=== PATIENT | female | born 1930 | race Caucasian/White ===

== ENCOUNTER 2016-07-05 05:49 | Day surgery (SDC) | payer MEDICARE ==
[2016-07-05] MEDS ORDERED: Xopenex 1.25 MG/0.5 ML UD NEBULE IH ONE (06:30)
[2016-07-05] MEDS ORDERED: Sodium Chloride 3 ML UD NEBULES IH SCH (06:30)
[2016-07-05] MEDS ORDERED: Lactated Ringers 1,000 ML IV SCH (06:30)
[2016-07-05 06:50] VITALS: O2SAT 90
[2016-07-05] MEDS ORDERED: DIPRIVAN 200 MG/20 ML IV ONE (08:00)
--- NOTE | 2016-07-05 08:38 | OP ---
SURGERY DATE/TIME: 07/05/2016 0759 PREOPERATIVE DIAGNOSIS: Dysphagia. POSTOPERATIVE DIAGNOSIS: Gastric polyps PROCEDURE: EGD. SURGEON: Ranulfo Pemberton M.D. ANESTHESIA: MAC by Javon Chavarria CRNA.0 ESTIMATED BLOOD LOSS: Minimal. SPECIMENS: Two cold forceps biopsies of gastric polyp. DESCRIPTION OF PROCEDURE: After informed written consent was obtained, the patient was taken to the endoscopy suite. She underwent monitored anesthesia and a bite block was inserted. The endoscope was inserted in posterior oropharynx and under direct visualization the esophagus was traversed. There was significant post-nasal drainage in the upper esophagus. There were no obvious mucosal abnormalities or defects. Upon entering the stomach there was normal rugated gastric mucosa. There was scattered gastric polyps which appeared benign in nature. Pylorus was traversed and the first and second portion of the duodenum were within normal limits. Upon withdrawal two cash posting representative gastric polyps were removed in their entirety with cold forceps and sent for pathology. There was minimal bleeding following removal. Upon withdrawal again the gastroesophageal junction and esophageal mucosa were inspected with no obvious stricture or defects appreciable. The scope was removed and the patient was transferred to the recovery room in excellent condition.
[2016-07-05 09:10] VITALS: BP 137/72; PULSE 69
== END 2016-07-05 09:19 | disposition home or self-care (01) ==
LOC: SDC 05:49
PROVIDERS: ATTEND Family Medicine
PROC: 0DB68ZX Excision of Stomach, Via Natural or Artificial Opening Endoscopic, Diagnostic (ICD-10-PCS; principal; 2016-07-05)
DX: K31.7 Polyp of stomach and duodenum (principal); R13.10 Dysphagia, unspecified
CPT/HCPCS: 00740; 36415; 88305; 94640; 99100; J2704; A9270-GY

== ENCOUNTER 2016-07-31 17:38 | Inpatient (IN) | payer MEDICARE ==
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
[2016-07-31 18:23] LABS: BASOPHIL % 0.5 % (0.0-0.4); Eosinophil % 2.2 % (0.00-5.0); Granulocytes % 51.6 % (36.0-66.0); Lymphocytes % 37.7 % (24.0-44.0); Mean Cell Volume 96.5 fl (78-100); Mean Corpuscular Hemoglobin 30.1 pg (26-32); Mean Platelet Volume 9.6 fl (6-9.5); Platelet Count 174 K/mm3 (150-450); Red Blood Count 4.05 M/mm3 (4.1-5.4); Red Cell Distribution Width 15.1 % (11.5-14.0)
[2016-07-31 18:38] LABS: Collection Type CLEAN CATCH
[2016-07-31 18:39] LABS: ADD URINE CULTURE? YES (NO); Bacteria MODERATE /HPF (NEGATIVE); COMPLETE URINE MICROSCOPIC? YES; Epithelial Cells MANY /HPF (FEW); WBC 15-25 /HPF (0-5)
[2016-07-31 18:58] LABS: ALBUMIN 3.3 g/dL (3.4-5.0); ANION GAP 12.5 MEQ/L (5-15); BILIRUBIN,TOTAL 0.6 mg/dL (0.2-1.0); Carbon Dioxide 25.7 mEq/L (21-32); Potassium 3.9 mEq/L (3.5-5.1); TROPONIN 0.018 ng/ml (0.000-0.056); Total Protein 6.7 gm/dL (6.4-8.2)
[2016-07-31] MEDS ORDERED: ROCEPHIN 1 Gm-D5w 50 ml Bag** 1 G/50 ML IVPB IV ONE (20:50)
[2016-07-31] MEDS ORDERED: Lopressor 25MG Tab PO ONE (22:30)
[2016-07-31] MEDS ORDERED: Protonix 40MG Tablet PO ONE (22:30)
[2016-07-31] MEDS: Cardizem CD 120 MG PO SCH (22:30)
[2016-07-31] MEDS ORDERED: NORCO 5/325 MG PO ONE (22:30)
[2016-07-31] MEDS: Lopressor 25MG Tab PO SCH (22:30)
[2016-07-31] MEDS ORDERED: Cardizem CD 120 MG PO ONE (22:30)
[2016-07-31] MEDS: Protonix 40MG Tablet PO SCH (22:31)
[2016-07-31] MEDS: NORCO 5/325 MG PO SCH (22:31)
[2016-08-01 05:45] LABS: BASOPHIL % 0.5 % (0.0-0.4); Eosinophil % 1.4 % (0.00-5.0); Lymphocytes % 44.1 % (24.0-44.0); Mean Cell Volume 97.2 fl (78-100); Platelet Count 177 K/mm3 (150-450); Red Blood Count 3.95 M/mm3 (4.1-5.4); Red Cell Distribution Width 15.1 % (11.5-14.0); White Blood Count 6.4 K/mm3 (4.0-10.5)
[2016-08-01 05:59] LABS: ANION GAP 11.5 MEQ/L (5-15); Carbon Dioxide 26.1 mEq/L (21-32); Potassium 3.8 mEq/L (3.5-5.1)
[2016-08-01 06:06] LABS: Mean Corpuscular Hemoglobin 29.8 pg (26-32)
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
--- NOTE | 2016-08-01 08:46 | XRAY ---
Exam: Two-view chest from 07/31/2016 6:35 PM. Comparison: AP upright portable chest film from 1515 hrs. on 10/20/2015. Indication: Cough, shaky. Findings: Upright PA and lateral chest films are submitted for evaluation. The transverse heart size appears at the upper limits of normal with mild left ventricle prominence posteriorly. Atherosclerotic calcification of the aortic arch and moderate tortuosity of the distal descending thoracic aorta are again seen. The patient has a known small hiatal hernia from a prior CT of the chest on 10/18/2015, but this is difficult to identify on the plain films. The remainder the kamran and mediastinal structures reveals either small vessels on end or granulomas within the right perihilar rejection. This is unchanged. No central pulmonary vascular congestion is seen. The lung tillman are mildly hyperinflated. No air space infiltrates, pneumothorax, or pleural fluid is seen. No other significant parenchymal lung abnormality is seen. Mild diffuse degenerative changes are seen throughout the thoracic spine. There is minimal mid dorsal kyphosis. Impression: 1. The heart size appears at the upper limits of normal with mild left ventricular prominence. No heart failure or pulmonary edema is seen. 2. No air space infiltrates or other acute cardiopulmonary disease is seen. 3. Lungs are mildly hyperinflated.
[2016-08-01] MEDS: NORCO 5/325 MG PO SCH ×4 (09:54→22:15)
[2016-08-01] MEDS: Cardizem CD 120 MG PO SCH ×3 (09:54→22:15)
[2016-08-01] MEDS: Lexapro 10 MG PO SCH (09:54)
[2016-08-01] MEDS: SYNTHROID 112 MCG PO SCH (09:55)
[2016-08-01] MEDS: Protonix 40MG Tablet PO SCH ×3 (09:55→22:16)
[2016-08-01] MEDS: PLAVIX 75 MG Tablet PO SCH (09:55)
[2016-08-01] MEDS: SYNTHROID 25 MCG PO SCH (09:55)
[2016-08-01] MEDS ORDERED: ROCEPHIN 1 Gm-D5w 50 ml Bag** 1 G/50 ML IVPB IV SCH (10:00)
[2016-08-01] MEDS ORDERED: NON-FORMULARY ITEM (Escitalopram Oxalate [Lexapro] 20 MG) PO SCH (10:00)
[2016-08-01] MEDS ORDERED: DILTIAZEM HCL 120 MG PO SCH (10:00)
[2016-08-01] MEDS ORDERED: NON-FORMULARY ITEM (Omeprazole 20 Mg [Prilosec 20 Mg] 20 MG) PO SCH (10:00)
[2016-08-01] MEDS ORDERED: NON-FORMULARY ITEM (Levothyroxine Sodium [Levothyroxine Sodium] 137 MCG) PO SCH (10:00)
[2016-08-01] MEDS: Lopressor 25MG Tab PO SCH ×2 (10:38→22:15)
[2016-08-01] MEDS ORDERED: Sodium Chloride 0.9% 10 ML FLUSH Syringe IV PRN (16:31)
[2016-08-01] MEDS: Nicoderm CQ 21 MG TOP SCH (16:32)
[2016-08-01] MEDS: ROCEPHIN 1 Gm-D5w 50 ml Bag** 1 G/50 ML IVPB IV SCH (22:16)
[2016-08-01] MEDS: PATIENT OWN MEDICATION PO SCH (22:16)
[2016-08-01] MEDS: xanAX 0.25 MG PO SCH (22:17)
--- NOTE | 2016-08-02 08:50 | PCM.NOTE ---
Date and Time: 08/02/16 0848 Subjective Assessment: Pt did sleep last night. Feeling better but still not feeling well. Objective Exam General Appearance: no apparent distress Neurologic Exam: alert, oriented x 3, cooperative Skin Exam: normal color, warm, dry Respiratory Exam: normal breath sounds, lungs clear, No crackles/rales, No rhonchi, No wheezing Cardiovascular Exam: regular rate/rhythm, normal heart sounds, No murmur Gastrointestinal/Abdomen Exam: soft, tenderness (generalized mild ttp, she states nl for her) OBJECTIVE DATA Vital Signs: Vital Signs - 24 hr Temp Pulse Resp BP Pulse Ox 08/02/16 07:03 98.5 F 63 20 135/72 95 08/02/16 04:42 98.6 F 62 20 135/71 93 L 08/02/16 04:00 98.6 F 62 20 135/71 93 L 08/01/16 23:46 98.8 F 53 L 18 116/59 94 L 08/01/16 20:00 98.3 F 60 18 145/83 94 L 08/01/16 16:00 99.1 F 59 L 20 172/74 90 L 08/01/16 12:00 99.2 F 56 L 22 133/59 93 L Pain Assessment - Last Documented Pain Intensity 0 Pain Scale Used [facility] Intake and Output: Intake & Output 07/30/16 07/31/16 08/01/16 08/02/16 11:59 11:59 11:59 11:59 Intake Total 200 500 Output Total 400 Balance 200 100 Assessment/Plan (1) UTI (urinary tract infection) Current Visit: Yes Status: Acute Qualifiers: Urinary tract infection type: acute cystitis Assessment & Plan: On IV rocephin, day #3. Culture is pending. Code(s): N39.0 - URINARY TRACT INFECTION, SITE NOT SPECIFIED (2) Altered mental status Current Visit: Yes Status: Resolved Qualifiers: Altered mental status type: disorientation Qualified Code(s): R41.0 - Disorientation, unspecified Assessment & Plan: Resolved. Still had auditory hallucinations last night, none this morning per pt. Code(s): R41.82 - ALTERED MENTAL STATUS, UNSPECIFIED (3) Drug side effects Current Visit: Yes Status: Acute Code(s): T88.7XXA - UNSP ADVERSE EFFECT OF DRUG OR MEDICAMENT, INIT ENCNTR
[2016-08-02] MEDS: PLAVIX 75 MG Tablet PO SCH (10:28)
[2016-08-02] MEDS: Lexapro 10 MG PO SCH (10:28)
[2016-08-02] MEDS: Nicoderm CQ 21 MG TOP SCH (10:28)
[2016-08-02] MEDS: Cardizem CD 120 MG PO SCH ×2 (10:29→21:51)
[2016-08-02] MEDS: Protonix 40MG Tablet PO SCH ×2 (10:29→21:52)
[2016-08-02] MEDS: NORCO 5/325 MG PO SCH ×3 (10:29→21:52)
[2016-08-02] MEDS: SYNTHROID 25 MCG PO SCH (10:29)
[2016-08-02] MEDS: xanAX 0.25 MG PO SCH ×3 (10:29→21:53)
[2016-08-02] MEDS: SYNTHROID 112 MCG PO SCH (10:29)
[2016-08-02] MEDS: PATIENT OWN MEDICATION PO SCH (21:52)
[2016-08-02] MEDS: Lopressor 25MG Tab PO SCH (21:52)
[2016-08-02] MEDS: ROCEPHIN 1 Gm-D5w 50 ml Bag** 1 G/50 ML IVPB IV SCH (21:53)
--- NOTE | 2016-08-03 08:49 | PCM.DS ---
Discharge Summary Date of Admission: 08/01/16 08:40 Admitting Physician: HARVEY CARMONA Primary Care Provider: Unknown Provider Allergies Allergies nitrofurantoin [From Macrobid] Allergy (Severe, Verified 07/31/16 17:45) nitrofurantoin macrocrystalline [From Macrobid] Allergy (Severe, Verified 17:45) morphine Allergy (Unknown, Verified 07/31/16 17:45) penicillin G Allergy (Unknown, Verified 07/31/16 17:45) Sulfa (Sulfonamide Antibiotics) [Sulfa(Sulfonamide Antibiotics)] Allergy ( Unknown, Verified 07/31/16 17:45) Hospital Summary - Hospital Course Hospital Course: Pt brought to the ER with some confusion, found to have UtI and treated with IV rocephin. No more mental status changes. She was having insomnia for the past 4-5 days after her xanax 0.25 mg TID that she's been on for years had been abruptly discontinued. She is sleeping well now. Feeling better. Will plan on discharge home after urine culture results are finalized. - Vitals & Intake/Output Vital Signs: Vital Signs Temperature 97.6 F 08/03/16 07:03 Pulse Rate 70 08/03/16 07:03 Respiratory Rate 18 08/03/16 07:03 Blood Pressure 122/58 08/03/16 07:03 O2 Sat by Pulse Oximetry 93 L 08/03/16 07:03 Intake & Output: Intake & Output 07/31/16 08/01/16 08/02/16 08/03/16 11:59 11:59 11:59 11:59 Intake Total 200 500 920 Output Total 400 1150 Balance 200 100 -230 - Lab Result Diagrams: 08/01/16 05:15 08/01/16 05:15 Discharge Exam General Appearance: no apparent distress Neurologic Exam: alert, oriented x 3, cooperative Skin Exam: normal color, warm, dry Respiratory Exam: normal breath sounds, lungs clear, No crackles/rales, No rhonchi, No wheezing Cardiovascular Exam: regular rate/rhythm, normal heart sounds, No murmur Extremity Exam: No pedal edema, No swelling Final Diagnosis/Problem List - Final Discharge Diagnosis/Problem (1) UTI (urinary tract infection) Current Visit: Yes Status: Acute Assessment & Plan: Improved, day #4 IV rocephin. WIll check urine culture final result then likely send pt home. - Discharge Disposition: Home, Self-Care Condition: Stable Prescriptions: No Action Omeprazole 20 MG [Prilosec 20 mg] 20 mg PO BID Clopidogrel Bisulfate 75 mg [PLAVIX 75 MG Tablet] 75 mg PO DAILY Diltiazem HCl [Diltiazem ER] 120 mg PO BID Metoprolol Tartrate 25 mg [Lopressor 25MG Tab] 25 mg PO HS Multivitamin [Multi-Vitamin Daily] 1 each PO DAILY Levothyroxine Sodium 137 mcg PO DAILY Escitalopram Oxalate [Lexapro] 20 mg PO DAILY Hydrocodone Bit/Acetaminophen [[place] 5-325 Tablet] 1 each PO TID Doxepin HCl [Silenor] 6 mg PO HS Buprenorphine [Butrans] 1 each TD WEEKLY Follow up with: Provider,Unknown [Primary Care Provider] -
[2016-08-03] MEDS: Protonix 40MG Tablet PO SCH (09:07)
[2016-08-03] MEDS: PLAVIX 75 MG Tablet PO SCH (09:07)
[2016-08-03] MEDS: SYNTHROID 25 MCG PO SCH (09:07)
[2016-08-03] MEDS: Cardizem CD 120 MG PO SCH (09:08)
[2016-08-03] MEDS: Lexapro 10 MG PO SCH (09:08)
[2016-08-03] MEDS: Nicoderm CQ 21 MG TOP SCH (09:08)
[2016-08-03] MEDS: xanAX 0.25 MG PO SCH (09:08)
[2016-08-03] MEDS: SYNTHROID 112 MCG PO SCH (09:08)
[2016-08-03] MEDS: NORCO 5/325 MG PO SCH (09:08)
[2016-08-03 11:23] VITALS: BP 134/80; PULSE 56; O2SAT 94
== END 2016-08-03 13:42 | disposition home or self-care (01) | DRG 690 ==
LOC: ED 17:38 → MED SURG 19:35 → UNDOADMOB 19:35 → OBSVTOIN 08-01 08:40 → INTOOBSV 08-01 08:40 → MED SURG 08-01 08:40
PROVIDERS: ADMIT Family Medicine; ATTEND Family Medicine
DX: N39.0 Urinary tract infection, site not specified (principal); I10 Essential (primary) hypertension; J44.9 Chronic obstructive pulmonary disease, unspecified; M19.90 Unspecified osteoarthritis, unspecified site; F41.8 Other specified anxiety disorders; R41.0 Disorientation, unspecified; Z72.0 Tobacco use; R41.82 Altered mental status, unspecified; T88.7XXA Unspecified adverse effect of drug or medicament, initial encounter; Z79.899 Other long term (current) drug therapy
CPT/HCPCS: 36415; 71020; 80048; 80053; 81000; 84484; 85025; 87086; 99285; G0378; J0696; A9270-GY

== ENCOUNTER 2017-09-09 13:05 | Emergency (ER) | payer MEDICARE ==
[2017-09-09] MEDS ORDERED: Phenergan 25 MG INJ IV ONE (13:51)
[2017-09-09] MEDS ORDERED: Sodium Chloride 0.9% 1000 ML 1,000 ML IV STA (13:51)
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
[2017-09-09] MEDS ORDERED: Sodium Chloride 0.9% 1000 ML 1,000 ML ONE (13:57)
[2017-09-09] MEDS ORDERED: Phenergan 25 MG INJ ONE (13:57)
[2017-09-09 14:06] LABS: BASOPHIL % 0.4 % (0.0-0.4); Basophil (Absolute #) 0.03 (0-0.4); Eosinophil % 1.4 % (0.00-5.0); Eosinophil (Absolute #) 0.11 (0-0.5); Granulocyte Absolute (ANC) 4.43 (1.4-6.9); Granulocytes % 58.1 % (36.0-66.0); Hematocrit 42.5 % (35-47); Hemoglobin 13.8 gm/dl (12.0-16.0); Lymphocyte (Absolute #) 2.49 (1.0-4.6); Lymphocytes % 32.6 % (24.0-44.0); Mean Cell Volume 90.8 fl (78-100); Mean Corpuscular Hemoglobin 29.5 pg (26-32); Mean Corpuscular Hgb Concent. 32.5 g/dl (32-36); Mean Platelet Volume 9.7 fl (6-9.5); Monocyte (Absolute #) 0.57 (0.0-1.3); Monocytes % 7.5 % (0.0-12.0); Platelet Count 212 K/mm3 (150-450); Red Blood Count 4.68 M/mm3 (4.1-5.4); Red Cell Distribution Width 14.5 % (11.5-14.0); White Blood Count 7.6 K/mm3 (4.0-10.5)
[2017-09-09 14:08] LABS: Appearance CLEAR (CLEAR); Bilirubin NEGATIVE (NEGATIVE); Glucose NEGATIVE (NEGATIVE); Ketones NEGATIVE (NEGATIVE); Leukocyte Esterase NEGATIVE (NEGATIVE); Nitrite NEGATIVE (NEGATIVE); Protein,Urine Dip NEGATIVE (Negative); Urobilinogen NORMAL mg/dL (0-1)
[2017-09-09 14:23] LABS: Amphetamine,Urine NEGATIVE (NEGATIVE); Barbiturate,Urine NEGATIVE (NEGATIVE); Benzodiazepine,Urine POSITIVE (NEGATIVE); Cocaine,Urine NEGATIVE (NEGATIVE); Methadone,Urine NEGATIVE (NEGATIVE); Opiate,Urine POSITIVE (NEGATIVE); PCP,Urine NEGATIVE (NEGATIVE); THC,Urine NEGATIVE (NEGATIVE)
[2017-09-09 14:34] LABS: Epithelial Cells FEW /HPF (FEW); RBC 0-2 /HPF (0-2); WBC 0-2 /HPF (0-5)
[2017-09-09 14:44] LABS: ALBUMIN 4.3 g/dL (3.5-5.0); ANION GAP 11.1 MEQ/L (5-15); BILIRUBIN,TOTAL 0.4 mg/dL (0.2-1.3); Calcium 9.5 mg/dL (8.4-10.2); Creatinine 1 0.96 mg/dL (0.52-1.04); Potassium 4.7 mmol/L (3.5-5.1); Total Protein 7.3 g/dL (6.3-8.2)
[2017-09-09 16:50] VITALS: BP 143/77; PULSE 78
[2017-09-09 17:13] VITALS: O2SAT 94
== END 2017-09-09 17:30 | disposition home or self-care (01) ==
LOC: ED 13:05
DX: K52.9 Noninfective gastroenteritis and colitis, unspecified (principal); R10.9 Unspecified abdominal pain; G25.81 Restless legs syndrome; N39.0 Urinary tract infection, site not specified; Z79.01 Long term (current) use of anticoagulants; Z79.899 Other long term (current) drug therapy
CPT/HCPCS: 36000; 36415; 80053; 80307; 81000; 82150; 83605; 83690; 85025; 93005; 96360; 96374; 99284; J2550

== ENCOUNTER 2017-09-14 13:53 | Observation (INO) | payer MEDICARE ==
[2017-09-14] MEDS ORDERED: Zofran 4 MG/2 ML VIAL IV PRN (14:49)
[2017-09-14] MEDS ORDERED: Sodium Chloride 0.9% 500 ML 500 ML IV SCH (15:00)
[2017-09-14 15:19] LABS: BASOPHIL % 0.4 % (0.0-0.4); Basophil (Absolute #) 0.03 (0-0.4); Eosinophil % 0.7 % (0.00-5.0); Eosinophil (Absolute #) 0.05 (0-0.5); Granulocyte Absolute (ANC) 4.18 (1.4-6.9); Granulocytes % 58.4 % (36.0-66.0); Hematocrit 39.5 % (35-47); Hemoglobin 12.6 gm/dl (12.0-16.0); Lymphocyte (Absolute #) 2.41 (1.0-4.6); Lymphocytes % 33.7 % (24.0-44.0); Mean Cell Volume 91.6 fl (78-100); Mean Corpuscular Hemoglobin 29.2 pg (26-32); Mean Corpuscular Hgb Concent. 31.9 g/dl (32-36); Mean Platelet Volume 9.1 fl (6-9.5); Monocyte (Absolute #) 0.49 (0.0-1.3); Monocytes % 6.8 % (0.0-12.0); Platelet Count 179 K/mm3 (150-450); Red Blood Count 4.31 M/mm3 (4.1-5.4); Red Cell Distribution Width 14.7 % (11.5-14.0); White Blood Count 7.2 K/mm3 (4.0-10.5)
[2017-09-14 15:40] LABS: ANION GAP 11.4 MEQ/L (5-15); BILIRUBIN,TOTAL 0.4 mg/dL (0.2-1.3); Calcium 9.1 mg/dL (8.4-10.2); Creatinine 1 0.96 mg/dL (0.52-1.04); Potassium 4.3 mmol/L (3.5-5.1); Total Protein 6.7 g/dL (6.3-8.2)
[2017-09-14] MEDS: Sodium Chloride 0.9% 1000 ML 1,000 ML IV SCH (16:40)
[2017-09-14 18:27] LABS: Appearance CLEAR (CLEAR); Bacteria MODERATE /HPF (NEGATIVE); Bilirubin NEGATIVE (NEGATIVE); Blood 50 Ery/ul (0-5); Epithelial Cells MODERATE /HPF (FEW); Glucose NEGATIVE (NEGATIVE); Ketones NEGATIVE (NEGATIVE); Leukocyte Esterase NEGATIVE (NEGATIVE); Mucus SLIGHT /HPF (NEGATIVE); Nitrite NEGATIVE (NEGATIVE); Protein,Urine Dip NEGATIVE (Negative); Specific Gravity 1.015 (1.005-1.025); Urobilinogen NORMAL mg/dL (0-1)
--- NOTE | 2017-09-14 18:49 | XRAY ---
Indication: An midabdominal pain and vomiting 1 week. Multiple contiguous axial images obtained through the abdomen and pelvis using 80 cc of Isovue 370 contrast. Enteric contrast also used. Comparison: October 18, 2015. Lung bases again demonstrates minimal bibasilar atelectasis/scarring. No infiltrate or effusion. Heart remains borderline enlarged. Small hiatal hernia appears smaller. Stomach is distended with contrast. Contrasted stomach and bowel loops appear nonobstructed. Appendix not seen. Again sigmoid diverticulosis. Sigmoid and lesser degree descending colon now demonstrates mild/moderate wall thickening with minimal stranding favoring colitis/diverticulitis. No free fluid/air. There has been interval cholecystectomy. Stable nonobstructing left renal micro-calculus. A few bilateral renal cysts not well-seen on previous noncontrast exam. Remaining liver, pancreas, spleen, adrenal glands, kidneys, ureters, and bladder appear unremarkable. There remains moderate aortoiliac calcifications with stable distal 2.6 cm fusiform aortic aneurysm. No pathologic retroperitoneal lymphadenopathy. Osseous structures intact again with moderate multilevel degenerative spondylosis and mild curvature scoliosis. Impression: 1. New descending and sigmoid colonic wall thickening with stranding favoring colitis/diverticulitis. No complications. 2. Bilateral renal cysts not seen on previous noncontrast exam. Stable nonobstructing left renal micro-calculus. 3. Stable mild distal AAA. 4. Smaller appearing hiatal hernia. CTDI 17.75
[2017-09-14] MEDS: FLAGYL 500 MG IVPB 500 MG/100 ML BAG IV SCH ×2 (19:40→22:24)
[2017-09-14] MEDS ORDERED: Levofloxacin 500MG/100ML D5W 500 MG/100 ML BAG IV SCH (20:00)
[2017-09-14] MEDS ORDERED: Lopressor 25MG Tab PO SCH (22:00)
[2017-09-14] MEDS ORDERED: NON-FORMULARY ITEM (Omeprazole 20 Mg [Prilosec 20 Mg] 20 MG) PO SCH (22:00)
[2017-09-14] MEDS ORDERED: xanAX 0.25 MG PO PRN (22:00)
[2017-09-14] MEDS ORDERED: DILTIAZEM HCL 120 MG PO SCH (22:00)
[2017-09-14] MEDS: Protonix 40MG Tablet PO SCH (22:19)
[2017-09-14] MEDS: Cardizem CD 120 MG PO SCH (22:19)
[2017-09-15] MEDS: FLAGYL 500 MG IVPB 500 MG/100 ML BAG IV SCH (06:19)
[2017-09-15] MEDS: Sodium Chloride 0.9% 1000 ML 1,000 ML IV SCH (06:19)
[2017-09-15] MEDS ORDERED: NORCO 5/325 MG PO PRN (08:28)
[2017-09-15] MEDS: Cardizem CD 120 MG PO SCH (09:24)
[2017-09-15] MEDS: Protonix 40MG Tablet PO SCH (09:24)
[2017-09-15] MEDS ORDERED: Lexapro 10 MG PO SCH (10:00)
[2017-09-15] MEDS ORDERED: SYNTHROID 25 MCG PO SCH (10:00)
[2017-09-15] MEDS ORDERED: PLAVIX 75 MG Tablet PO SCH (10:00)
[2017-09-15] MEDS ORDERED: NON-FORMULARY ITEM (Escitalopram Oxalate [Lexapro] 20 MG) PO SCH (10:00)
[2017-09-15] MEDS ORDERED: SYNTHROID 112 MCG PO SCH (10:00)
[2017-09-15] MEDS ORDERED: NON-FORMULARY ITEM (Levothyroxine Sodium [Levothyroxine Sodium] 137 MCG) PO SCH (10:00)
--- NOTE | 2017-09-15 10:58 | PCM.DCORD ---
- Discharge Discharge Date: 09/15/17 Disposition: Home, Self-Care Condition: Stable Prescriptions: New Metronidazole 500 mg [Flagyl 500 MG] 500 mg PO TID #21 tablet Levofloxacin [Levaquin] 500 mg PO DAILY #7 tablet Continue Omeprazole 20 MG [Prilosec 20 mg] 20 mg PO BID Clopidogrel Bisulfate 75 mg [PLAVIX 75 MG Tablet] 75 mg PO DAILY dilTIAZem HCl [Diltiazem ER] 120 mg PO BID Metoprolol Tartrate 25 mg [Lopressor 25MG Tab] 25 mg PO HS Multivitamin [Multi-Vitamin Daily] 1 each PO DAILY Levothyroxine Sodium 137 mcg PO DAILY Escitalopram Oxalate [Lexapro] 20 mg PO DAILY Hydrocodone Bit/Acetaminophen [[place] 5-325 Tablet] 1 each PO TID Doxepin HCl [Silenor] 6 mg PO HS Alprazolam 0.25 mg [xanAX 0.25 MG] 0.25 mg PO TID #0 tablet Discontinued Cephalexin Mh 500 mg [Keflex 500 mg] 500 mg PO Q6H #28 capsule Follow up with: OLIVIER HORN [COURTESY STAFF] - 1 Week HARVEY CARMONA [Primary Care Provider] - 1 Week
[2017-09-15 12:04] VITALS: BP 133/73; PULSE 67; O2SAT 95
[2017-09-15] MEDS ORDERED: Levaquin 250MG/50ML D5W 250 MG/50 ML BAG IV SCH (20:00)
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
== END 2017-09-15 11:50 | disposition home or self-care (01) ==
LOC: MED SURG 14:43
PROVIDERS: ADMIT Family Medicine; ATTEND Family Medicine
DX: K57.92 Diverticulitis of intestine, part unspecified, without perforation or abscess without bleeding (principal); J44.9 Chronic obstructive pulmonary disease, unspecified; I10 Essential (primary) hypertension; I71.4 Abdominal aortic aneurysm, without rupture; I25.10 Atherosclerotic heart disease of native coronary artery without angina pectoris; M81.0 Age-related osteoporosis without current pathological fracture; M19.90 Unspecified osteoarthritis, unspecified site; F41.8 Other specified anxiety disorders; Z72.0 Tobacco use; Z79.899 Other long term (current) drug therapy
CPT/HCPCS: 36415; 74177; 80053; 81000; 82150; 83690; 84484; 85025; 87086; 93005; G0378; J1956; A9270-GY

== ENCOUNTER 2017-12-25 08:30 | Emergency (ER) | payer MEDICARE ==
[2017-12-25] MEDS ORDERED: Sodium Chloride 0.9% 1000 ML 1,000 ML IV STA (08:55)
[2017-12-25] MEDS ORDERED: Phenergan 25 MG INJ IV ONE (08:55)
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
[2017-12-25] MEDS ORDERED: Phenergan 25 MG INJ ONE ×2 (09:09→09:15)
[2017-12-25] MEDS ORDERED: Sodium Chloride 0.9% 1000 ML 1,000 ML ONE (09:09)
[2017-12-25 09:11] LABS: BASOPHIL % 0.4 % (0.0-0.4); Basophil (Absolute #) 0.03 (0-0.4); Eosinophil % 1.4 % (0.00-5.0); Granulocyte Absolute (ANC) 4.78 (1.4-6.9); Granulocytes % 69.2 % (36.0-66.0); Hematocrit 43.6 % (35-47); Hemoglobin 13.6 gm/dl (12.0-16.0); Lymphocyte (Absolute #) 1.46 (1.0-4.6); Lymphocytes % 21.1 % (24.0-44.0); Mean Cell Volume 94.4 fl (78-100); Mean Corpuscular Hemoglobin 29.4 pg (26-32); Mean Corpuscular Hgb Concent. 31.2 g/dl (32-36); Mean Platelet Volume 10.5 fl (6-9.5); Monocyte (Absolute #) 0.55 (0.0-1.3); Monocytes % 7.9 % (0.0-12.0); Platelet Count 184 K/mm3 (150-450); Red Blood Count 4.62 M/mm3 (4.1-5.4); Red Cell Distribution Width 15.3 % (11.5-14.0); White Blood Count 6.9 K/mm3 (4.0-10.5)
[2017-12-25 09:26] LABS: ALBUMIN 3.9 g/dL (3.5-5.0); ALKALINE PHOSPHATASE 124 U/L (38-126); AMYLASE 38 U/L (30-110); ANION GAP 12.6 MEQ/L (5-15); BLOOD UREA NITROGEN 17 mg/dL (7-17); CHLORIDE 108 mmol/L (98-107); Calcium 9.2 mg/dL (8.4-10.2); Carbon Dioxide 24 mmol/L (22-30); Creatinine 1 0.73 mg/dL (0.52-1.04); Glucose 115 mg/dL (74-106); LIPASE 74 U/L (23-300); Potassium 4.3 mmol/L (3.5-5.1); SGOT/AST 19 U/L (14-36); SGPT/ALT 14 U/L (0-35); SODIUM 140 mmol/L (137-145); Total Protein 6.7 g/dL (6.3-8.2)
[2017-12-25] MEDS ORDERED: Zofran 4 MG/2 ML VIAL IV ONE ×2 (09:35→11:27)
[2017-12-25] MEDS ORDERED: Zofran 4 MG/2 ML VIAL ONE ×2 (09:42→11:31)
[2017-12-25] MEDS ORDERED: DILAUDID 2 MG INJECTION IV ONE ×2 (09:45→11:28)
[2017-12-25] MEDS ORDERED: Hydromorphone 1 mg/ml Ampule ONE ×2 (09:46→11:32)
[2017-12-25 11:42] LABS: Appearance CLEAR (CLEAR); Bilirubin NEGATIVE (NEGATIVE); Blood LARGE Ery/ul (0-5); Glucose NEGATIVE (NEGATIVE); Ketones NEGATIVE (NEGATIVE); Leukocyte Esterase NEGATIVE (NEGATIVE); Nitrite NEGATIVE (NEGATIVE); Protein,Urine Dip NEGATIVE (Negative); Urobilinogen NEGATIVE mg/dL (0-1)
[2017-12-25 15:40] VITALS: BP 120/74; PULSE 76; O2SAT 97
== END 2017-12-25 16:14 | disposition home or self-care (01) ==
LOC: ED 08:30
DX: N20.1 Calculus of ureter (principal); R10.32 Left lower quadrant pain; R11.2 Nausea with vomiting, unspecified; R63.0 Anorexia
CPT/HCPCS: 36000; 36415; 80053; 81001; 82150; 83605; 83690; 85025; 96360; 96374; 96375; 96376; 99284; J1170; J2405; J2550

== ENCOUNTER 2019-03-30 09:51 | Inpatient (IN) | payer MEDICARE ==
[2019-03-30] MEDS ORDERED: Zofran 4 MG/2 ML VIAL IV ONE (10:16)
[2019-03-30] MEDS ORDERED: Sodium Chloride 0.9% 1000 ML 1,000 ML IV STA (10:16)
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
[2019-03-30] MEDS ORDERED: Sodium Chloride 0.9% 1000 ML 1,000 ML ONE (10:26)
[2019-03-30] MEDS ORDERED: Zofran 4 MG/2 ML VIAL ONE (10:26)
[2019-03-30 10:36] LABS: Absolute Neutrophil Ct (ANC) 3.57 (1.4-6.9); BASOPHIL % 0.5 % (0.0-0.4); Basophil (Absolute #) 0.03 (0-0.4); Eosinophil % 2.7 % (0.00-5.0); Eosinophil (Absolute #) 0.16 (0-0.5); Hematocrit 42.2 % (35-47); Hemoglobin 13.8 gm/dl (12.0-16.0); Lymphocyte (Absolute #) 1.57 (1.0-4.6); Lymphocytes % 26.8 % (24.0-44.0); Mean Cell Volume 96.6 fl (78-100); Mean Corpuscular Hemoglobin 31.6 pg (26-32); Mean Corpuscular Hgb Concent. 32.7 g/dl (32-36); Mean Platelet Volume 9.2 fl (7.5-11.0); Monocyte (Absolute #) 0.53 (0.0-1.3); Platelet Count 192 K/mm3 (150-450); Red Blood Count 4.37 M/mm3 (4.1-5.4); Red Cell Distribution Width 14.4 % (11.5-14.0); White Blood Count 5.9 K/mm3 (4.0-10.5)
[2019-03-30 10:48] LABS: ALBUMIN 3.8 g/dL (3.5-5.0); ANION GAP 12.4 MEQ/L (5-15); BILIRUBIN,TOTAL 0.6 mg/dL (0.2-1.3); Calcium 9.5 mg/dL (8.4-10.2); Creatinine 1 1.36 mg/dL (0.52-1.04); Potassium 4.5 mmol/L (3.5-5.1); Total Protein 7.1 g/dL (6.3-8.2)
[2019-03-30 11:00] LABS: Appearance SLIGHTLY CLOUDY (CLEAR); Bacteria FEW /HPF (NEGATIVE); Bilirubin NEGATIVE (NEGATIVE); Blood MODERATE Ery/ul (0-5); Epithelial Cells RARE /HPF (FEW); Glucose NEGATIVE (NEGATIVE); Hyaline Casts >50 /LPF (0-2); Ketones NEGATIVE (NEGATIVE); Leukocyte Esterase SMALL (NEGATIVE); Mucus SLIGHT /HPF (NEGATIVE); Nitrite NEGATIVE (NEGATIVE); Non-Squamous Epithelial Cells RARE /HPF (FEW); Protein,Urine Dip 30 (Negative); RBC 51-100 /HPF (0-2); Specific Gravity 1.019 (1.005-1.025); Urobilinogen NEGATIVE mg/dL (0-1); WBC 51-100 /HPF (0-5)
[2019-03-30] MEDS ORDERED: ROCEPHIN 1 Gm-D5w 50 ml Bag** 1 G/50 ML IVPB IV STA (13:48)
[2019-03-30] MEDS ORDERED: ROCEPHIN 1 Gm-D5w 50 ml Bag** 1 G/50 ML IVPB IV ONE (14:09)
[2019-03-30] MEDS ORDERED: Zofran 4 MG/2 ML VIAL IV PRN (14:23)
[2019-03-30] MEDS ORDERED: PROVENTIL COMMON CANISTER IH PRN (17:45)
[2019-03-30] MEDS ORDERED: ADVAIR 250-50 DISKUS 14 DOSE IH SCH (19:00)
--- NOTE | 2019-03-30 20:11 | XRAY ---
Indication: Abdomen pain. Multiple contiguous axial images obtained through the abdomen and pelvis without contrast as ordered. Comparison: December 02, 2018. Lung bases again demonstrates scattered atelectasis/scarring. Minimally enlarging 7 x 13 mm lateral left lower lobe subpleural noncalcified nodularity (image 15), previously 6 x 10 mm. Smaller 6 x 7 mm left lower lobe subpleural noncalcified nodularity posteriorly (image 8) not seen on previous exam but new with respect to CT chest January 02, 2019. No infiltrate or effusion. Heart is not enlarged. New small hiatal hernia. Noncontrasted stomach and bowel loops appear nonobstructed again with sigmoid diverticulosis. Previous 6 mm left ureteral calculus has slightly progressed to the level of S2. Proximal left ureter remains distended up to 13 mm along with moderate hydronephrosis favoring obstructive uropathy. Left ureter distal to the calculus is now prominent up to 9 mm. Remaining left kidney again demonstrates round low-attenuation lesions favoring parapelvic cysts stable right lower renal cortical cyst. Stable cholecystectomy and hysterectomy. No free fluid/air. Remaining liver, pancreas, spleen, adrenal glands, and bladder appear unremarkable for noncontrast exam. Stable heavy scattered vascular calcifications and 2.6 cm distal AAA. Osseous structures again demonstrates osteopenia, moderate/advanced multilevel thoracolumbar degenerative spondylosis, and scoliosis. There has been interval L1/L4/L5 kyphoplasty. Impression: 1. Again distal 6 mm left ureter calculus producing obstruction again with high-grade hydronephrosis without perinephric fluid. Again incidental bilateral renal cysts. 2. New small hiatal hernia. Stable colonic diverticulosis. 3. Suspicious left lower lobe subpleural noncalcified nodules as detailed. 4. Status post multilevel lumbar kyphoplasty with stable chronic bony findings. Comment: Preliminary interpretation was made by C. No critical discrepancy.
[2019-03-30] MEDS: Advair Hfa 115/21 Common canister IH SCH (20:36)
[2019-03-30] MEDS: BUSPAR 5 MG PO SCH (22:48)
[2019-03-30] MEDS: ELIQUIS 2.5 MG TABLET PO SCH (22:48)
[2019-03-30] MEDS: ANTIVERT 25 MG PO SCH (22:48)
[2019-03-30] MEDS: Protonix 40MG Tablet PO SCH (22:48)
[2019-03-30] MEDS: Klor Con 10 MEQ PO SCH (22:54)
[2019-03-30] MEDS: xanAX 0.25 MG PO PRN (22:54)
[2019-03-30] MEDS: NORCO 5/325 MG PO PRN (22:54)
[2019-03-30] MEDS: Voltaren GEL TOP SCH (22:57)
[2019-03-31 05:24] LABS: Absolute Neutrophil Ct (ANC) 2.94 (1.4-6.9); BASOPHIL % 0.4 % (0.0-0.4); Basophil (Absolute #) 0.02 (0-0.4); Eosinophil % 2.2 % (0.00-5.0); Eosinophil (Absolute #) 0.12 (0-0.5); Hematocrit 38.9 % (35-47); Hemoglobin 12.3 gm/dl (12.0-16.0); Lymphocyte (Absolute #) 1.96 (1.0-4.6); Lymphocytes % 35.3 % (24.0-44.0); Mean Corpuscular Hemoglobin 31.3 pg (26-32); Mean Corpuscular Hgb Concent. 31.6 g/dl (32-36); Mean Platelet Volume 9.3 fl (7.5-11.0); Monocyte (Absolute #) 0.52 (0.0-1.3); Monocytes % 9.4 % (0.0-12.0); Neutrophil % 52.7 % (36.0-66.0); Platelet Count 184 K/mm3 (150-450); Red Blood Count 3.93 M/mm3 (4.1-5.4); Red Cell Distribution Width 14.5 % (11.5-14.0); White Blood Count 5.6 K/mm3 (4.0-10.5)
[2019-03-31 05:46] LABS: ALBUMIN 3.3 g/dL (3.5-5.0); ANION GAP 9.3 MEQ/L (5-15); BILIRUBIN,TOTAL 0.4 mg/dL (0.2-1.3); Calcium 8.9 mg/dL (8.4-10.2); Creatinine 1 1.21 mg/dL (0.52-1.04); Potassium 4.4 mmol/L (3.5-5.1); Total Protein 6.1 g/dL (6.3-8.2)
[2019-03-31] MEDS ORDERED: NON-FORMULARY ITEM (Ondansetron Hcl [Zofran] 4 MG) PO PRN (07:54)
[2019-03-31] MEDS ORDERED: Fosamax 70 MG PO SCH (08:00)
[2019-03-31] MEDS ORDERED: BUPRENORPHINE HCL 300 MCG BC SCH (08:00)
[2019-03-31] MEDS ORDERED: ZOFRAN ODT 4 MG PO PRN (08:02)
[2019-03-31] MEDS: Advair Hfa 115/21 Common canister IH SCH ×2 (08:05→17:20)
[2019-03-31] MEDS ORDERED: MEDICATION INTERVENTION MC SCH ×3 (08:15→08:30)
[2019-03-31] MEDS: NORCO 5/325 MG PO PRN ×2 (08:28→22:47)
[2019-03-31] MEDS: Cardizem CD 120 MG PO SCH ×2 (08:29→18:51)
[2019-03-31] MEDS ORDERED: Cardizem IV 50 MG/10 ML IV ONE ×4 (08:46→20:22)
[2019-03-31] MEDS: Cymbalta 30 MG Capsule PO SCH (08:58)
[2019-03-31] MEDS: ELIQUIS 2.5 MG TABLET PO SCH ×2 (08:58→21:38)
[2019-03-31] MEDS: ANTIVERT 25 MG PO SCH ×3 (08:58→21:38)
[2019-03-31] MEDS: Protonix 40MG Tablet PO SCH ×2 (08:59→21:38)
[2019-03-31] MEDS: PLAVIX 75 MG Tablet PO SCH (08:59)
[2019-03-31] MEDS: Klor Con 10 MEQ PO SCH ×2 (08:59→21:38)
[2019-03-31] MEDS: Voltaren GEL TOP SCH ×3 (08:59→21:45)
[2019-03-31] MEDS: THERAGRAN MULTIVITAMIN PO SCH (08:59)
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
[2019-03-31] MEDS ORDERED: NON-FORMULARY ITEM (Multivitamin [Multi-Vitamin Daily] 1 EACH) PO SCH (10:00)
[2019-03-31] MEDS: ROCEPHIN 1 Gm-D5w 50 ml Bag** 1 G/50 ML IVPB IV SCH (11:09)
[2019-03-31] MEDS: Flomax 0.4 MG PO SCH (11:09)
[2019-03-31] MEDS ORDERED: CARDIZEM DRIP 100 MG/100 ML D5W 100 ML IV PRN (20:22)
[2019-03-31] MEDS: BUSPAR 5 MG PO SCH (21:38)
[2019-03-31] MEDS: xanAX 0.25 MG PO PRN (21:38)
[2019-03-31] MEDS ORDERED: CYPROHEPTADINE HCL PO SCH (22:00)
[2019-04-01] MEDS: TYLENOL 325 MG PO PRN (00:30)
[2019-04-01] MEDS: NICODERM CQ 14 MG TOP SCH (01:41)
[2019-04-01 05:02] LABS: Absolute Neutrophil Ct (ANC) 2.68 (1.4-6.9); BASOPHIL % 0.2 % (0.0-0.4); Basophil (Absolute #) 0.01 (0-0.4); Eosinophil % 1.4 % (0.00-5.0); Eosinophil (Absolute #) 0.07 (0-0.5); Hematocrit 37.1 % (35-47); Hemoglobin 11.7 gm/dl (12.0-16.0); Lymphocytes % 36.9 % (24.0-44.0); Mean Cell Volume 98.4 fl (78-100); Mean Corpuscular Hgb Concent. 31.5 g/dl (32-36); Mean Platelet Volume 9.4 fl (7.5-11.0); Monocyte (Absolute #) 0.49 (0.0-1.3); Monocytes % 9.5 % (0.0-12.0); Platelet Count 171 K/mm3 (150-450); Red Blood Count 3.77 M/mm3 (4.1-5.4); Red Cell Distribution Width 14.3 % (11.5-14.0); White Blood Count 5.2 K/mm3 (4.0-10.5)
[2019-04-01 05:15] LABS: ANION GAP 9.4 MEQ/L (5-15); Calcium 8.8 mg/dL (8.4-10.2); Creatinine 1 1.06 mg/dL (0.52-1.04); Potassium 4.4 mmol/L (3.5-5.1)
[2019-04-01] MEDS: Advair Hfa 115/21 Common canister IH SCH ×2 (06:51→18:38)
--- NOTE | 2019-04-01 08:35 | PCM.NOTE ---
Date and Time: 04/01/19831 Subjective Assessment: Yesterday she was in and out of afib with RVR wtih heart rates up to the 150s. She received 5mg cardizem push with no improvement; had restarted her po cardizem in the morning. She was moved to ICU for cardizem drip but converted as soon as she got there. Not currently on any cardizem with HR in the 80s. She feels she is too weak to cook her meals and care for herself in the home at this time. - Review of Systems Constitutional: No Fever Musculoskeletal: Arthralgias (L arm pain, proximal humerus, for some months, "like a toothache") Objective Exam General Appearance: no apparent distress, alert Neurologic Exam: oriented x 3, cooperative Skin Exam: normal color, warm, dry, No rash Respiratory Exam: normal breath sounds, lungs clear, No crackles/rales, No rhonchi, No wheezing Cardiovascular Exam: regular rate/rhythm, normal heart sounds, No murmur Extremity Exam: other (L arm mildly ttp proximally, there are no lesions/ erythema) Back Exam: normal inspection, No rash OBJECTIVE DATA Vital Signs: Vital Signs - 24 hr Temp Pulse Resp BP Pulse Ox 04/01/19 07:36 97.9 F 72 18 135/81 94 L 04/01/19 07:35 75 04/01/19 05:32 98.4 F 75 16 133/68 92 L 04/01/19 04:00 98.4 F 75 16 133/68 92 L 04/01/19 00:01 86 04/01/19 00:00 98.6 F 82 21 129/70 92 L 03/31/19 20:45 98.9 F 88 21 142/81 93 L 03/31/19 20:30 89 03/31/19 17:20 89 18 93 L 03/31/19 15:53 98.3 F 89 18 129/64 94 L 03/31/19 11:04 98.1 F 79 18 126/77 97 Pain Assessment - Last Documented Pain Intensity 3 Pain Scale Used 0-10 Pain Scale Intake and Output: Intake & Output 03/29/19 03/30/19 03/31/19 04/01/19 11:59 11:59 11:59 11:59 Intake Total 1040 1320 Output Total 200 1650 Balance 840 -330 Weight 61.235 kg 61.235 kg Lab Results: Lab Results-Last 24 Hours 03/31/19 04/01/19 04/01/19 Range/Units 14:30 04:19 04:19 WBC 5.2 (4.0-10.5) K/mm3 RBC 3.77 L (4.1-5.4) M/mm3 Hgb 11.7 L (12.0-16.0) gm/dl Hct 37.1 (35-47) % MCV 98.4 (78-100) fl MCH 31.0 (26-32) pg MCHC 31.5 L (32-36) g/dl RDW 14.3 H (11.5-14.0) % Plt Count 171 (150-450) K/mm3 MPV 9.4 (7.5-11.0) fl Gran % 52.0 (36.0-66.0) % Eos # (Auto) 0.07 (0-0.5) Absolute Lymphs (auto) 1.90 (1.0-4.6) Absolute Monos (auto) 0.49 (0.0-1.3) Lymphocytes % 36.9 (24.0-44.0) % Monocytes % 9.5 (0.0-12.0) % Eosinophils % 1.4 (0.00-5.0) % Basophils % 0.2 (0.0-0.4) % Absolute Granulocytes 2.68 (1.4-6.9) Basophils # 0.01 (0-0.4) Sodium 137 (137-145) mmol/L Potassium 4.4 (3.5-5.1) mmol/L Chloride 105 (98-107) mmol/L Carbon Dioxide 27 (22-30) mmol/L Anion Gap 9.4 (5-15) MEQ/L BUN 15 (7-17) mg/dL Creatinine 1.06 H (0.52-1.04) mg/dL Estimated GFR 52.1 ML/MIN Glucose 110 H (74-106) mg/dL Calcium 8.8 (8.4-10.2) mg/dL Troponin I 0.013 (0.000-0.034) ng/mL Radiology Exams: Radiology Procedures Category Date Time Status ABDOMEN AND PELVIS W/0 CONTRAS [CT] Stat Exams 03/30/19 10:17 Completed Assessment/Plan (1) UTI (urinary tract infection) Current Visit: Yes Status: Acute Qualifiers: Urinary tract infection type: site unspecified Hematuria presence: with hematuria Qualified Code(s): N39.0 - Urinary tract infection, site not specified; R31.9 - Hematuria, unspecified Assessment & Plan: On rocephin day #3, ucx with mixed colonies but will finish 5d of abx. Code(s): N39.0 - URINARY TRACT INFECTION, SITE NOT SPECIFIED (2) Nephrolithiasis Current Visit: Yes Status: Acute Assessment & Plan: not complaining of pain this morning. Will discuss with urology. (3) Generalized weakness Current Visit: Yes Status: Acute Assessment & Plan: could benefit from swing bed after acute stay. Code(s): R53.1 - WEAKNESS (4) COPD (chronic obstructive pulmonary disease) Current Visit: No Status: Chronic (5) HTN (hypertension) Current Visit: No Status: Chronic Code(s): I10 - ESSENTIAL (PRIMARY) HYPERTENSION (6) Renal insufficiency Current Visit: Yes Status: Chronic Assessment & Plan: improved
--- NOTE | 2019-04-01 09:13 | XRAY ---
Indication: Pain following fall months ago. Comparison: March 19, 2009. 2 views of the left humerus again demonstrates osteopenia with progressive worsening moderate/advanced glenohumeral and stable moderate AC degenerative arthropathy. No other bony, articular, or soft tissue abnormalities.
[2019-04-01] MEDS: THERAGRAN MULTIVITAMIN PO SCH (09:38)
[2019-04-01] MEDS: ELIQUIS 2.5 MG TABLET PO SCH ×2 (09:38→22:17)
[2019-04-01] MEDS: Protonix 40MG Tablet PO SCH ×2 (09:38→22:17)
[2019-04-01] MEDS: PLAVIX 75 MG Tablet PO SCH (09:38)
[2019-04-01] MEDS: Cardizem CD 120 MG PO SCH ×2 (09:38→19:37)
[2019-04-01] MEDS: ROCEPHIN 1 Gm-D5w 50 ml Bag** 1 G/50 ML IVPB IV SCH (09:39)
[2019-04-01] MEDS: Voltaren GEL TOP SCH ×3 (09:39→22:18)
[2019-04-01] MEDS: ANTIVERT 25 MG PO SCH ×3 (09:39→22:16)
[2019-04-01] MEDS: Klor Con 10 MEQ PO SCH ×2 (09:39→22:18)
[2019-04-01] MEDS: Flomax 0.4 MG PO SCH (09:39)
[2019-04-01] MEDS: Cymbalta 30 MG Capsule PO SCH (09:39)
[2019-04-01] MEDS: xanAX 0.25 MG PO PRN (22:17)
[2019-04-01] MEDS: BUSPAR 5 MG PO SCH (22:17)
[2019-04-01] MEDS: Mirapex 0.5 MG Tablet PO SCH (22:19)
[2019-04-02] MEDS: NICODERM CQ 14 MG TOP SCH (01:25)
[2019-04-02] MEDS ORDERED: Fosamax 70 MG PO SCH (06:00)
[2019-04-02] MEDS: Advair Hfa 115/21 Common canister IH SCH ×2 (07:16→17:21)
--- NOTE | 2019-04-02 08:38 | XRAY ---
Indication: Pain for 4 months. No known injury. Multiple contiguous axial images obtained through the left elbow. Two-dimensional sagittal and coronal reformatted images obtained. Comparison: None Osseous structures demineralized consistent with patient's age. Left elbow articulation appears intact without large effusion. No acute fracture, suspicious bony lesions, or osseous destructive process. Visualized noncontrasted soft tissues unremarkable. Impression: Osteopenia. Remaining CT left elbow is negative.
--- NOTE | 2019-04-02 09:34 | PCM.NOTE ---
Date and Time: 04/02/19930 Subjective Assessment: patient feels weak, denies any urinary problems or flank pain, states she just has everyday aches and pains. overall thinks she is doing better Objective Exam General Appearance: no apparent distress, alert Respiratory Exam: normal breath sounds, lungs clear, No respiratory distress Cardiovascular Exam: regular rate/rhythm, normal heart sounds Gastrointestinal/Abdomen Exam: soft, No tenderness, No mass Extremity Exam: normal inspection, normal range of motion OBJECTIVE DATA Vital Signs: Vital Signs - 24 hr Temp Pulse Resp BP Pulse Ox 04/02/19 07:43 98.6 F 82 18 161/95 94 L 04/02/19 07:18 78 24 92 L 04/02/19 00:00 98.6 F 87 17 147/80 92 L 04/01/19 20:00 98.0 F 126 H 26 H 140/80 93 L 04/01/19 18:38 84 95 04/01/19 15:55 98.2 F 81 17 104/92 92 L 04/01/19 12:00 98.1 F 79 15 139/99 94 L Pain Assessment - Last Documented Pain Intensity 2 Pain Scale Used 0-10 Pain Scale,FLACC Intake and Output: Intake & Output 03/30/19 03/31/19 04/01/19 04/02/19 11:59 11:59 11:59 11:59 Intake Total 1040 1320 340 Output Total 200 1650 Balance 840 -330 340 Weight 61.235 kg 61.235 kg Radiology Exams: Radiology Procedures Category Date Time Status HUMERUS Routine Exams 04/01/19 08:52 Completed UPPER EXTREMITY W/O CONTRAST [CT] Routine Exams 04/01/19 17:16 Completed Multi-Disciplinary Progress Notes: Multi-Disciplinary Progress Notes 04/01/19 09:37 Case Management Note by Maty Padilla PATIENT HAS HOME HEALTH CARE THRU [facility]- THEY CALLED THIS AM AND ARE AWARE THAT PATIENT IS IN HOUSE OBS Initialized on 04/01/19 09:37 - END OF NOTE Assessment/Plan (1) Left ureteral calculus Current Visit: Yes Status: Acute Assessment & Plan: has no symptoms, initial ct with left 6mm stone at UVJ, not currently straining urine, recommend f/u with KUB today to see if stone identified Code(s): N20.1 - CALCULUS OF URETER (2) Generalized weakness Current Visit: Yes Status: Acute Code(s): R53.1 - WEAKNESS (3) UTI (urinary tract infection) Current Visit: Yes Status: Acute Qualifiers: Urinary tract infection type: site unspecified Hematuria presence: with hematuria Assessment & Plan: on rocephin, mixed paul noted Code(s): N39.0 - URINARY TRACT INFECTION, SITE NOT SPECIFIED
--- NOTE | 2019-04-02 10:08 | XRAY ---
Indication: Follow-up left UVJ stone. Comparison: None. KUB demonstrates nonspecific nonobstructed bowel gas pattern. 6 mm left ureteral calculus seen on recent CT not seen. There are a few pelvic phleboliths and cholecystectomy clips. Solid organs unremarkable. Extensive scattered vascular calcifications. Osseous structures demonstrate osteopenia, advanced multilevel degenerative spondylosis, scoliosis, L1/L4/L5 kyphoplasty, and proximal left femur fracture. Impression: CT proven left ureteral calculus not seen either passed or is not radiopaque. CT renal stone study may yield further information if there remains further clinical concern.
[2019-04-02] MEDS: ROCEPHIN 1 Gm-D5w 50 ml Bag** 1 G/50 ML IVPB IV SCH (10:21)
[2019-04-02] MEDS: ANTIVERT 25 MG PO SCH ×3 (10:26→20:50)
[2019-04-02] MEDS: Klor Con 10 MEQ PO SCH ×2 (10:26→20:49)
[2019-04-02] MEDS: THERAGRAN MULTIVITAMIN PO SCH (10:26)
[2019-04-02] MEDS: TYLENOL 325 MG PO PRN (10:26)
[2019-04-02] MEDS: PLAVIX 75 MG Tablet PO SCH (10:27)
[2019-04-02] MEDS: Cymbalta 30 MG Capsule PO SCH (10:27)
[2019-04-02] MEDS: ELIQUIS 2.5 MG TABLET PO SCH ×2 (10:27→20:50)
[2019-04-02] MEDS: Flomax 0.4 MG PO SCH (10:27)
[2019-04-02] MEDS: Cardizem CD 120 MG PO SCH ×2 (10:27→20:49)
[2019-04-02] MEDS: PATIENT OWN MEDICATION BC SCH ×2 (10:28→20:51)
[2019-04-02] MEDS: Voltaren GEL TOP SCH ×3 (10:29→20:55)
[2019-04-02] MEDS: Protonix 40MG Tablet PO SCH ×2 (10:32→20:50)
[2019-04-02] MEDS ORDERED: PYRIDIUM 200 MG PO PRN (20:39)
[2019-04-02] MEDS: BUSPAR 5 MG PO SCH (20:49)
[2019-04-02] MEDS: Mirapex 0.5 MG Tablet PO SCH (20:54)
[2019-04-02] MEDS: xanAX 0.25 MG PO PRN (21:02)
[2019-04-02] MEDS ORDERED: PATIENT OWN MEDICATION PO SCH (22:00)
[2019-04-03] MEDS: NICODERM CQ 14 MG TOP SCH (02:00)
[2019-04-03] MEDS ORDERED: PYRIDIUM 200 MG PO PRN (06:18)
[2019-04-03] MEDS: Advair Hfa 115/21 Common canister IH SCH (06:44)
[2019-04-03] MEDS: THERAGRAN MULTIVITAMIN PO SCH (07:41)
[2019-04-03] MEDS: Flomax 0.4 MG PO SCH (07:41)
[2019-04-03] MEDS: Protonix 40MG Tablet PO SCH (07:41)
[2019-04-03] MEDS: Klor Con 10 MEQ PO SCH (07:41)
[2019-04-03] MEDS: ELIQUIS 2.5 MG TABLET PO SCH (07:42)
[2019-04-03] MEDS: ANTIVERT 25 MG PO SCH ×2 (07:42→15:01)
[2019-04-03] MEDS: Cymbalta 30 MG Capsule PO SCH (07:42)
[2019-04-03] MEDS: NORCO 5/325 MG PO PRN (07:42)
[2019-04-03] MEDS: Cardizem CD 120 MG PO SCH (07:42)
[2019-04-03] MEDS: PLAVIX 75 MG Tablet PO SCH (07:42)
[2019-04-03] MEDS: PATIENT OWN MEDICATION BC SCH (07:43)
[2019-04-03] MEDS: ROCEPHIN 1 Gm-D5w 50 ml Bag** 1 G/50 ML IVPB IV SCH (07:44)
--- NOTE | 2019-04-03 09:09 | PCM.NOTE ---
Date and Time: 04/03/19906 Subjective Assessment: Pt is having some lower abd pain, dysuria, and pelvic "bladder spasms" today ( started last night). Poor appetite. - Review of Systems Constitutional: No Fever Abdominal/Gastrointestinal: Abdominal Pain Objective Exam General Appearance: no apparent distress, alert Neurologic Exam: oriented x 3, cooperative Skin Exam: normal color, warm, dry, No rash Ears, Nose, Throat Exam: moist mucous membranes Neck Exam: normal inspection Respiratory Exam: normal breath sounds, lungs clear, No crackles/rales, No rhonchi, No wheezing Cardiovascular Exam: regular rate/rhythm, normal heart sounds, No murmur Gastrointestinal/Abdomen Exam: soft, normal bowel sounds, tenderness (mild suprapubic), No distention, No mass, No guarding, No rebound Extremity Exam: normal inspection, No pedal edema, No swelling Back Exam: normal inspection, No rash OBJECTIVE DATA Vital Signs: Vital Signs - 24 hr Temp Pulse Resp BP Pulse Ox 04/03/19 07:30 98.9 F 75 20 135/81 94 L 04/03/19 06:47 76 18 93 L 04/03/19 03:41 97.8 F 75 22 133/69 92 L 04/03/19 00:00 97.6 F 99 H 20 141/75 91 L 04/02/19 20:00 97.9 F 91 H 15 145/78 96 04/02/19 17:23 85 18 93 L 04/02/19 16:00 98.7 F 85 18 129/72 93 L 04/02/19 12:00 98.6 F 82 20 140/75 93 L Pain Assessment - Last Documented Pain Intensity 0 Pain Scale Used 0-10 Pain Scale Intake and Output: Intake & Output 03/31/19 04/01/19 04/02/19 04/03/19 11:59 11:59 11:59 11:59 Intake Total 1040 1320 340 860 Output Total 200 1650 400 Balance 840 -330 340 460 Weight 61.235 kg 61.235 kg Radiology Exams: Radiology Procedures Category Date Time Status HUMERUS Routine Exams 04/01/19 08:52 Completed KUB Routine Exams 04/02/19 09:49 Completed UPPER EXTREMITY W/O CONTRAST [CT] Routine Exams 04/01/19 17:16 Completed Multi-Disciplinary Progress Notes: Multi-Disciplinary Progress Notes 04/02/19 12:02 Physical Therapy Note by Sheryl House Pt was seen by the PT this AM. She was seen reclining in her bed. She was able to transition from supine to sit to stand independently. She ambulated with her rollator to the bathroom and used the toilet independently. Pt needed assist to don non-slip socks. She ambulated with rollator and SBA of 1 for approximately 400 feet. Her vitals started at 97% O2 and 94bpm. After walking and returning to her room her vitals were 94% and 100bpm. She stated she wanted to return to bed as she was fatigued and had not yet walked that far. She independently got back into bed. She noted she would rest for the rest of the morning and would probably want to walk again this afternoon. Sheryl House PT Initialized on 04/02/19 12:02 - END OF NOTE 04/02/19 11:06 Case Management Note by Maty Padilla PATIENT REPORTS SHE IS FEELING BETTER BUT STILL FEELS LIKE SHE IS WEAKER THAN HER BASELINE AND IS CONCERNED ABOUT CARING FOR HERSELF AT HOME. WILL CONTINUE TO FOLLOW. PATIENT HAS HOME HEALTH CARE THRU [facility] Initialized on 04/02/19 11:06 - END OF NOTE Assessment/Plan (1) UTI (urinary tract infection) Current Visit: Yes Status: Acute Qualifiers: Urinary tract infection type: site unspecified Hematuria presence: with hematuria Qualified Code(s): N39.0 - Urinary tract infection, site not specified; R31.9 - Hematuria, unspecified Assessment & Plan: will re-culture. start azo and give 1 dose levaquin for now. Code(s): N39.0 - URINARY TRACT INFECTION, SITE NOT SPECIFIED (2) Nephrolithiasis Current Visit: Yes Status: Acute Assessment & Plan: KUB did not show stone; check renal u/s. (3) Generalized weakness Current Visit: Yes Status: Acute Assessment & Plan: she has done well with rehab, I do not think qualifies for swing bed. May need home on home health, possibly tomorrow. Code(s): R53.1 - WEAKNESS (4) COPD (chronic obstructive pulmonary disease) Current Visit: No Status: Chronic Qualifiers: COPD type: chronic bronchitis Chronic bronchitis type: simple Qualified Code(s): J41.0 - Simple chronic bronchitis (5) HTN (hypertension) Current Visit: No Status: Chronic Qualifiers: Hypertension type: essential hypertension Qualified Code(s): I10 - Essential (primary) hypertension Code(s): I10 - ESSENTIAL (PRIMARY) HYPERTENSION (6) Renal insufficiency Current Visit: Yes Status: Chronic Assessment & Plan: recheck in a.m.
[2019-04-03] MEDS: Voltaren GEL TOP SCH ×2 (09:34→15:01)
[2019-04-03] MEDS ORDERED: Levaquin 250MG/50ML D5W 250 MG/50 ML BAG IV SCH (10:00)
--- NOTE | 2019-04-03 11:18 | XRAY ---
Indication: Hydronephrosis. Two-dimensional renal sonogram performed. Comparison: None Both kidneys normal in reniform shape with normal perfusion. Right kidney measures 9.7 x 3.9 x 4.7 cm and the left measures 9.1 x 3.4 x 4.6 cm. Left kidney is significantly hydronephrotic without focal mass or perinephric fluid. Right mid kidney demonstrates a 1.2 cm cortical cyst. Images of the minimally distended urinary bladder demonstrates 2 foci of bladder mass versus bladder wall thickening, largest 1.5 x 1.3 x 1.3 cm. Normal right ureteral jet. Left ureteral jet not seen within the allotted exam. Impression: 1. Markedly hydronephrotic left kidney. Left ureteral jet not seen. Findings consistent with known distal left ureteral calculus on CT March 30, 2019. Urology consultation recommended. 2. Right renal cortical cyst. 3. Small urinary bladder masses versus bladder wall thickening.
[2019-04-03 16:54] VITALS: BP 149/77; PULSE 84; O2SAT 92
--- NOTE | 2019-04-03 17:28 | PCM.DS ---
Discharge Summary Date of Admission: 03/31/19 18:00 Admitting Physician: HARVEY CARMONA Primary Care Provider: WILLAM CALDERON Allergies Allergies nitrofurantoin [From Macrobid] Allergy (Severe, Verified 12/25/17 08:46) nitrofurantoin macrocrystalline [From Macrobid] Allergy (Severe, Verified 08:46) morphine Allergy (Unknown, Verified 12/25/17 08:46) penicillin G Allergy (Unknown, Verified 12/25/17 08:46) Sulfa (Sulfonamide Antibiotics) [Sulfa(Sulfonamide Antibiotics)] Allergy ( Unknown, Verified 12/25/17 08:46) Hospital Summary - Hospital Course Hospital Course: is a 89 year old female pt of Dr. Calderon'clayton who was admitted through ER with several days of vomiting and poor po intake. She also c/o L lower back pain (lumbar) and fever up to 102. Hx frequent UTIs. Found to have UTI in the ER and 6mm stone in L ureter on CT scan, with obstruction and hydronephrosis. Admitted on IV rocephin; Ucx neg but she was kept on IV rocephin x 3d. Her renal function has been decreased in the past, eGFR 39 on admission improved to 52.1 two days ago She says she had a recent dx of renal cancer but Dr. Brarientos is just observing it. She had missed some of her po cardizem at home and went in and out of afib with RVR during her 2nd and 3rd days here - resolved with a few pushes of 5mg cardizem IV and resumption of her po cardizem (120mg BID). She has been in sinus rhythm for the past 2 days. This morning pt c/o lower abd pain. Renal u/s showed severe hyronephrosis on the L. 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 Will transfer to hospital - Vitals & Intake/Output Vital Signs: Vital Signs Temperature 98.4 F 04/03/19 16:00 Pulse Rate 84 04/03/19 16:00 Respiratory Rate 16 04/03/19 16:00 Blood Pressure 149/77 04/03/19 16:00 O2 Sat by Pulse Oximetry 92 L 04/03/19 16:00 Intake & Output: Intake & Output 04/01/19 04/02/19 04/03/19 04/04/19 11:59 11:59 11:59 11:59 Intake Total 1320 340 860 480 Output Total 1650 400 400 Balance -330 340 460 80 Weight 61.235 kg - Lab Result Diagrams: 04/01/19 04:19 04/01/19 04:19 Micro Results-Entire Visit: Microbiology 03/30/19 10:20 Urine Culture - Final Clean Catch Midstream MIXED KEYON; 3 OR MORE TYPES. NO PREDOMINANT ORGANISM. NO FURTHER WORKUP. PLEASE RESUBMIT IF CLINICALLY INDICATED. - Radiology Exams Ordered Rad Exams-Entire Visit: Radiology Procedures Category Date Time Status KIDNEY [US] Routine Exams 04/03/19 10:50 Completed KUB Routine Exams 04/02/19 09:49 Completed UPPER EXTREMITY W/O CONTRAST [CT] Routine Exams 04/01/19 17:16 Completed - Procedures and Test Procedures and Tests throughout Hospitalization: Therapy Orders & Screens 03/30/19 17:22 Respiratory MDI BID Comment: Diagnosis: Generalized weakness 03/30/19 17:46 Peak Expiratory Flow Rate ONCE Comment: Reason For Exam: Diagnosis: Generalized weakness Respiratory Therapy Assessment DAILY Comment: Diagnosis: Generalized weakness 03/31/19 08:31 EKG ONCE Comment: Diagnosis: Generalized weakness 03/31/19 09:48 EKG ONCE Comment: Diagnosis: Generalized weakness 03/31/19 17:11 EKG ONCE Comment: Diagnosis: Generalized weakness 04/01/19 11:02 PT Eval & Treat (MD Order) ROUTINE Reason for Eval:: PATIENT FEELS TOO WEAK TO RETURN HOME, PATIENT LIVES ALONE Diagnosis: Generalized weakness Discharge Exam General Appearance: no apparent distress, alert Neurologic Exam: oriented x 3, cooperative Eye Exam: eyes nml inspection Ears, Nose, Throat Exam: moist mucous membranes Respiratory Exam: normal breath sounds, lungs clear, No crackles/rales, No rhonchi, No wheezing Cardiovascular Exam: regular rate/rhythm, normal heart sounds, No murmur Gastrointestinal/Abdomen Exam: soft, normal bowel sounds, tenderness (suprapubic ), No distention, No mass, No guarding, No rebound Extremity Exam: No pedal edema, No swelling Skin Exam: normal color, warm, dry, No rash Final Diagnosis/Problem List - Final Discharge Diagnosis/Problem (1) Hydronephrosis Current Visit: Yes Status: Acute Assessment & Plan: Per Dr. Tapia, transferring to [facility] for procedure. on L. Code(s): N13.30 - UNSPECIFIED HYDRONEPHROSIS (2) Nephrolithiasis Current Visit: Yes Status: Acute (3) Generalized weakness Current Visit: Yes Status: Acute Assessment & Plan: Our plan was originally to keep pt in swing bed for rehab and have her leave just outpatient for her procedure; however she has been doing really well in therapy and no longer qualifies for swing bed. Code(s): R53.1 - WEAKNESS (4) COPD (chronic obstructive pulmonary disease) Current Visit: No Status: Chronic (5) HTN (hypertension) Current Visit: No Status: Chronic Code(s): I10 - ESSENTIAL (PRIMARY) HYPERTENSION (6) Renal insufficiency Current Visit: Yes Status: Chronic Assessment & Plan: improved since admission, but has not been checked in 2 d. - Discharge Disposition: [facility] TO [facility] Condition: Stable Prescriptions: No Action Omeprazole 20 MG [Prilosec 20 mg] 20 mg PO BID Clopidogrel Bisulfate 75 mg [PLAVIX 75 MG Tablet] 75 mg PO DAILY Multivitamin [Multi-Vitamin Daily] 1 each PO DAILY Hydrocodone Bit/Acetaminophen [[place] 5-325 Tablet] 1 each PO TID Potassium Chloride 20 Meq [Klor-Con 20 MEQ] 20 meq BID Buspirone HCl [Buspar] 5 mg PO HS Ondansetron HCl [Zofran] 4 mg PO TID PRN #10 tablet PRN Reason: Nausea/Vomiting Alprazolam 0.25 mg [xanAX 0.25 MG] 0.25 mg PO BID PRN PRN PRN Reason: Anxiety Alendronate Sodium 70 mg PO WEEKLY Buprenorphine HCl [Belbuca] 300 mcg BC Q12H Apixaban [Eliquis] 2.5 mg PO BID Cyproheptadine HCl 8 mg PO HS Fluticasone/Salmeterol Disc [Advair 250-50 Diskus 14 Dose] 1 puff IH BID Duloxetine HCl 30 mg PO DAILY Meclizine HCl 25 mg PO TID Diclofenac Sodium Gel [Voltaren GEL] 2 g TOP TID Follow up with: HARVEY CARMONA [ACTIVE STAFF] - 1 Week
== END 2019-04-03 18:55 | disposition short-term general hospital (02) | DRG 694 ==
LOC: ED 09:51 → MED SURG 14:18 → OBSVTOIN 03-31 18:00 → ICU 03-31 20:17
PROVIDERS: ADMIT Family Medicine; ATTEND Family Medicine
DX: N13.2 Hydronephrosis with renal and ureteral calculous obstruction (principal); R53.1 Weakness; N39.0 Urinary tract infection, site not specified; J44.9 Chronic obstructive pulmonary disease, unspecified; I10 Essential (primary) hypertension; N32.89 Other specified disorders of bladder; M79.622 Pain in left upper arm; I48.91 Unspecified atrial fibrillation; N28.9 Disorder of kidney and ureter, unspecified; Z79.01 Long term (current) use of anticoagulants; Z79.899 Other long term (current) drug therapy
CPT/HCPCS: 36000; 36415; 73060; 73200; 74018; 74176; 76770; 80048; 80053; 81001; 82150; 83690; 84484; 85025; 87086; 93005; 94640; 94760; 94762; 96360; 96365; 96374; 97161; 97530; 99285; G0378; J0696; J1956; J2405; Q0162; A9270-GY

== ENCOUNTER 2019-04-24 11:41 | Inpatient (IN) | payer MEDICARE ==
[2019-04-24 12:28] LABS: Absolute Neutrophil Ct (ANC) 7.51 (1.4-6.9); BASOPHIL % 0.2 % (0.0-0.4); Basophil (Absolute #) 0.02 (0-0.4); Eosinophil % 0.3 % (0.00-5.0); Eosinophil (Absolute #) 0.03 (0-0.5); Hematocrit 38.6 % (35-47); Lymphocyte (Absolute #) 1.44 (1.0-4.6); Lymphocytes % 15.3 % (24.0-44.0); Mean Cell Volume 97.2 fl (78-100); Mean Corpuscular Hemoglobin 30.2 pg (26-32); Mean Corpuscular Hgb Concent. 31.1 g/dl (32-36); Mean Platelet Volume 9.6 fl (7.5-11.0); Monocyte (Absolute #) 0.41 (0.0-1.3); Monocytes % 4.4 % (0.0-12.0); Neutrophil % 79.8 % (36.0-66.0); Platelet Count 253 K/mm3 (150-450); Red Blood Count 3.97 M/mm3 (4.1-5.4); White Blood Count 9.4 K/mm3 (4.0-10.5)
[2019-04-24] MEDS ORDERED: Cardizem IV 50 MG/10 ML IV ONE (12:30)
[2019-04-24] MEDS: CARDIZEM DRIP 100 MG/100 ML D5W 100 ML IV SCH ×2 (12:44→21:38)
[2019-04-24 12:48] LABS: ALBUMIN 4.3 g/dL (3.5-5.0); ANION GAP 11.6 MEQ/L (5-15); BILIRUBIN,TOTAL 0.7 mg/dL (0.2-1.3); Creatinine 1 1.28 mg/dL (0.52-1.04); Potassium 4.7 mmol/L (3.5-5.1); Total Protein 7.6 g/dL (6.3-8.2)
--- NOTE | 2019-04-24 16:15 | XRAY ---
Indication: Pain. Comparison: April 02, 2019. KUB remains nonacute and nonobstructed with new left double-J ureteral stent catheter in good position. Solid organs unremarkable again with cholecystectomy clips. Stable extensive vascular calcifications. Osseous structures again demonstrates osteopenia, advanced multilevel degenerative spondylosis, scoliosis, L1/L4/L5 kyphoplasty, and old proximal left femur fracture with intact orthopedic hardware. Impression: New left ureteral stent catheter in a otherwise negative KUB again with chronic features.
[2019-04-24 16:19] LABS: Appearance SLIGHTLY CLOUDY (CLEAR); Bacteria FEW /HPF (NEGATIVE); Bilirubin NEGATIVE (NEGATIVE); Blood MODERATE Ery/ul (0-5); Glucose NEGATIVE (NEGATIVE); Ketones NEGATIVE (NEGATIVE); Leukocyte Esterase NEGATIVE (NEGATIVE); Mucus SLIGHT /HPF (NEGATIVE); Nitrite NEGATIVE (NEGATIVE); Protein,Urine Dip 30 (Negative); Specific Gravity 1.018 (1.005-1.025); Urobilinogen NEGATIVE mg/dL (0-1)
[2019-04-24] MEDS ORDERED: ANTIVERT 25 MG PO PRN (17:00)
[2019-04-24] MEDS ORDERED: MEDICATION INTERVENTION PO SCH (17:15)
[2019-04-24] MEDS: Sodium Chloride 0.9% 1000 ML 1,000 ML IV SCH (17:33)
[2019-04-24] MEDS: Cymbalta 30 MG Capsule PO SCH (17:48)
[2019-04-24] MEDS: Protonix 40MG Tablet PO SCH (17:49)
[2019-04-24] MEDS: SYNTHROID 125 MCG PO SCH (17:49)
[2019-04-24] MEDS: Advair Hfa 115/21 Common canister IH SCH (19:55)
[2019-04-24] MEDS: ELIQUIS 2.5 MG TABLET PO SCH (21:23)
[2019-04-24] MEDS: BUSPAR 5 MG PO SCH (21:23)
[2019-04-24] MEDS: Klor Con 10 MEQ PO SCH (21:24)
[2019-04-24] MEDS: Voltaren GEL TOP SCH (21:24)
[2019-04-24] MEDS ORDERED: NON-FORMULARY ITEM (Potassium Chloride 20 Meq [Klor-Con 20 Meq] 20 MEQ) PO SCH (22:00)
[2019-04-24] MEDS ORDERED: BUSPIRONE HCL 5 MG PO SCH (22:00)
[2019-04-24] MEDS ORDERED: Mirapex 0.5 MG Tablet PO SCH (22:00)
[2019-04-24] MEDS ORDERED: CYPROHEPTADINE HCL PO SCH (22:00)
[2019-04-24] MEDS: NORCO 5/325 MG PO PRN (23:27)
[2019-04-24] MEDS: xanAX 0.25 MG PO PRN (23:27)
[2019-04-25] MEDS: Advair Hfa 115/21 Common canister IH SCH ×2 (07:05→19:43)
--- NOTE | 2019-04-25 08:11 | CONS ---
CONSULT DATE: 04/24/2019 BRIEF HISTORY: This is an 89 year-old female who was seen because of atrial fibrillation. The patient apparently had a respiratory tract infection and has been coughing a lot. She started to experience some palpitations and was brought to the emergency room and was found to be in atrial fibrillation. She is currently on IV Cardizem. She has had mild chest pains earlier. The patient has had history of atrial fibrillation in the past. She is currently anticoagulated. Years ago she had cardiac and ureteral stent placed. She denies any paroxysmal nocturnal dyspnea. No orthopnea. No recent febrile episodes. CARDIAC RISK FACTORS: No diabetes. Positive for hypertension. She does not smoke. No known hyperlipidemia. CURRENT MEDICATIONS: Alendronate, Alprazolam, apixaban, Belbuca, buspirone, Plavix, cyproheptadine, Voltaren gel, duloxetine, Advair, [place], levothyroxine, meclizine, multivitamins, omeprazole, potassium. 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 No seizures. RESPIRATORY: She has history of bronchitis. GI: No history of peptic ulcer or colon disorder. : She had the recent ureteral stent. PERIPHERAL VASCULAR: She has history of deep venous thrombosis. SOCIAL HISTORY: She still lives independent. PHYSICAL EXAMINATION: Blood pressure 120/98 with a heart rate of 126, respirations about 16. GENERAL: The patient is an elderly female who is alert, oriented and somewhat comfortable in recumbent position. HEENT: Unremarkable. NECK: No obvious JVD or carotid bruits. CHEST: The breath sounds are harsh with scattered rhonchi in both lung tillman. CARDIAC: Heart tones are variable. The rhythm is atrial fibrillation. Soft apical systolic murmur. ABDOMEN: Soft with normal bowel sounds. EXTREMITIES: There is trace edema. Decreased distal pulses. LAB DATA AND DIAGNOSTIC TESTS: The EKG on 04/24/2019 at 1237 hours showed atrial fibrillation with a rapid ventricular response. Repeat EKG done at 1600 hours showed sinus rhythm. IMPRESSION: In essence the patient has: 1) Paroxysmal atrial fibrillation. Will continue with Cardizem drip and anticoagulation. An echocardiogram will be obtained to assess left ventricular systolic function. 2) History of hypothyroidism with replacement therapy. TSH is ordered. 3) Respiratory tract infection.
--- NOTE | 2019-04-25 08:36 | XRAY ---
Indication: Cough and crackles. Comparison: January 22, 2019. Portable chest demonstrates new tiny left effusion and borderline cardiomegaly. Stable right base fibrosis/scarring and arteriosclerotic/tortuous aorta. Upper lungs clear. Bony thorax again demonstrates osteopenia, moderate degenerative changes, scoliosis, and L1 kyphoplasty. Impression: New tiny left effusion and borderline cardiomegaly with remaining chest unchanged.
--- NOTE | 2019-04-25 08:46 | PCM.HP.ADD ---
Addendum to History & Physical - History & Physical Addendum Addendum to History & Physical: This certifies that the History & Physical in the electronic chart reflects the current health status of the patient. If there are changes in the H&P these changes/exceptions are listed as follows.
--- NOTE | 2019-04-25 08:50 | PCM.NOTE ---
Date and Time: 04/25/19 0845 Subjective Assessment: Pt directly admitted from office yesterday with HR 160; she was placed on cardizem drip. Seen by Dr. Ruiz, thank you. Weaned off drip about 4 am and has HR in the 70s currently. Not feeling well; has cough. - Review of Systems Constitutional: No Fever Respiratory: Cough Objective Exam General Appearance: mild distress, alert, anxiety Neurologic Exam: oriented x 3, cooperative Skin Exam: normal color, warm, dry, No rash Eye Exam: eyes nml inspection Ears, Nose, Throat Exam: moist mucous membranes Respiratory Exam: diminished breath sounds (good air exchange), rhonchi ( scattered), wheezing (scattered), No crackles/rales Cardiovascular Exam: regular rate/rhythm, normal heart sounds, No murmur Gastrointestinal/Abdomen Exam: soft, No tenderness Extremity Exam: normal inspection, No pedal edema, No swelling Back Exam: normal inspection, No rash OBJECTIVE DATA Vital Signs: Vital Signs - 24 hr Temp Pulse Resp BP BP Pulse Ox 04/25/19 07:49 68 04/25/19 07:40 73 14 97 04/25/19 07:00 98.3 F 71 21 162/105 95 04/25/19 06:00 71 145/86 04/25/19 05:00 70 127/61 04/25/19 04:00 98.1 F 72 16 134/76 95 04/25/19 02:00 74 120/54 04/25/19 01:00 73 125/83 04/25/19 00:01 73 04/25/19 00:00 74 140/73 04/24/19 23:00 84 111/105 04/24/19 22:00 83 123/81 04/24/19 21:38 82 119/100 04/24/19 21:00 80 26 H 119/100 94 L 04/24/19 20:15 99.6 F 86 17 129/87 97 04/24/19 20:00 80 04/24/19 19:55 86 20 96 04/24/19 18:00 117 H 20 110/88 04/24/19 17:00 94 H 21 133/88 04/24/19 16:19 91 H 18 96 04/24/19 16:00 98.3 F 88 19 138/88 95 02/20/20 15:51 88 19 136/85 02/20/20 15:00 148 H 25 H 139/99 04/24/19 13:45 148 H 21 132/97 04/24/19 13:21 98.4 F 160 H 24 118/101 04/24/19 12:44 165 H 14 124/98 Pain Assessment - Last Documented Pain Intensity 0 Pain Scale Used 0-10 Pain Scale Intake and Output: Intake & Output 04/22/19 04/23/19 04/24/19 04/25/19 11:59 11:59 11:59 11:59 Intake Total 3086 Output Total 1425 Balance 1661 Weight 58 kg Lab Results: Lab Results-Last 24 Hours 04/24/19 04/24/19 04/24/19 Range/Units 12:26 12:26 12:26 WBC 9.4 (4.0-10.5) K/mm3 RBC 3.97 L (4.1-5.4) M/mm3 Hgb 12.0 (12.0-16.0) gm/dl Hct 38.6 (35-47) % MCV 97.2 (78-100) fl MCH 30.2 (26-32) pg MCHC 31.1 L (32-36) g/dl RDW 14.0 (11.5-14.0) % Plt Count 253 (150-450) K/mm3 MPV 9.6 (7.5-11.0) fl Gran % 79.8 H (36.0-66.0) % Eos # (Auto) 0.03 (0-0.5) Absolute Lymphs (auto) 1.44 (1.0-4.6) Absolute Monos (auto) 0.41 (0.0-1.3) Lymphocytes % 15.3 L (24.0-44.0) % Monocytes % 4.4 (0.0-12.0) % Eosinophils % 0.3 (0.00-5.0) % Basophils % 0.2 (0.0-0.4) % Absolute Granulocytes 7.51 H (1.4-6.9) Basophils # 0.02 (0-0.4) Sodium 140 (137-145) mmol/L Potassium 4.7 (3.5-5.1) mmol/L Chloride 107 (98-107) mmol/L Carbon Dioxide 27 (22-30) mmol/L Anion Gap 11.6 (5-15) MEQ/L BUN 30 H (7-17) mg/dL Creatinine 1.28 H (0.52-1.04) mg/dL Estimated GFR 41.9 ML/MIN Glucose 126 H (74-106) mg/dL Calcium 10.0 (8.4-10.2) mg/dL Total Bilirubin 0.70 (0.2-1.3) mg/dL AST 21 (14-36) U/L ALT 12 (0-35) U/L Alkaline Phosphatase 86 (38-126) U/L Troponin I 0.013 (0.000-0.034) ng/mL NT-Pro-B Natriuret Pep 1160 (0-1800) pg/mL Serum Total Protein 7.6 (6.3-8.2) g/dL Albumin 4.3 (3.5-5.0) g/dL TSH 3rd Generation (0.47-4.68) mIU/L Urine Color (YELLOW) Urine Appearance (CLEAR) Urine pH (5-6) Ur Specific [place] (1.005-1.025) Urine Protein (Negative) Urine Ketones (NEGATIVE) Urine Blood (0-5) Ash/ul Urine Nitrite (NEGATIVE) Urine Bilirubin (NEGATIVE) Urine Urobilinogen (0-1) mg/dL Ur Leukocyte Esterase (NEGATIVE) Urine WBC (Auto) (0-5) /HPF Urine RBC (Auto) (0-2) /HPF U Epithel Cells (Auto) (FEW) /HPF Urine Bacteria (Auto) (NEGATIVE) /HPF Urine Mucus (Auto) (NEGATIVE) /HPF Urine Culture Reflexed (NO) Urine Glucose (NEGATIVE) mg/dL 04/24/19 04/25/19 Range/Units 14:58 04:20 WBC (4.0-10.5) K/mm3 RBC (4.1-5.4) M/mm3 Hgb (12.0-16.0) gm/dl Hct (35-47) % MCV (78-100) fl MCH (26-32) pg MCHC (32-36) g/dl RDW (11.5-14.0) % Plt Count (150-450) K/mm3 MPV (7.5-11.0) fl Gran % (36.0-66.0) % Eos # (Auto) (0-0.5) Absolute Lymphs (auto) (1.0-4.6) Absolute Monos (auto) (0.0-1.3) Lymphocytes % (24.0-44.0) % Monocytes % (0.0-12.0) % Eosinophils % (0.00-5.0) % Basophils % (0.0-0.4) % Absolute Granulocytes (1.4-6.9) Basophils # (0-0.4) Sodium (137-145) mmol/L Potassium (3.5-5.1) mmol/L Chloride (98-107) mmol/L Carbon Dioxide (22-30) mmol/L Anion Gap (5-15) MEQ/L BUN (7-17) mg/dL Creatinine (0.52-1.04) mg/dL Estimated GFR ML/MIN Glucose (74-106) mg/dL Calcium (8.4-10.2) mg/dL Total Bilirubin (0.2-1.3) mg/dL AST (14-36) U/L ALT (0-35) U/L Alkaline Phosphatase (38-126) U/L Troponin I (0.000-0.034) ng/mL NT-Pro-B Natriuret Pep (0-1800) pg/mL Serum Total Protein (6.3-8.2) g/dL Albumin (3.5-5.0) g/dL TSH 3rd Generation 0.922 (0.47-4.68) mIU/L Urine Color YELLOW (YELLOW) Urine Appearance SLIGHTLY CLOUDY (CLEAR) Urine pH 5.0 (5-6) Ur Specific [place] 1.018 (1.005-1.025) Urine Protein 30 (Negative) Urine Ketones NEGATIVE (NEGATIVE) Urine Blood MODERATE (0-5) Ash/ul Urine Nitrite NEGATIVE (NEGATIVE) Urine Bilirubin NEGATIVE (NEGATIVE) Urine Urobilinogen NEGATIVE (0-1) mg/dL Ur Leukocyte Esterase NEGATIVE (NEGATIVE) Urine WBC (Auto) 16-25 (0-5) /HPF Urine RBC (Auto) 11-15 (0-2) /HPF U Epithel Cells (Auto) NONE (FEW) /HPF Urine Bacteria (Auto) FEW (NEGATIVE) /HPF Urine Mucus (Auto) SLIGHT (NEGATIVE) /HPF Urine Culture Reflexed YES (NO) Urine Glucose NEGATIVE (NEGATIVE) mg/dL Radiology Exams: Radiology Procedures Category Date Time Status CHEST 1 VIEW (PORTABLE) Routine Exams 04/24/19 16:30 Taken ECHO W/2D AND DOPPLER [US] Routine Exams 04/25/19 08:00 Ordered KUB Routine Exams 04/24/19 12:30 Completed Multi-Disciplinary Progress Notes: Multi-Disciplinary Progress Notes 04/24/19 14:32 Case Management Note by Yaneth Kuo CALL TO [facility] TO REPORT THAT PT WAS IN HOSPITAL INPATIENT. Initialized on 04/24/19 14:32 - END OF NOTE Assessment/Plan (1) Atrial fibrillation with rapid ventricular response Current Visit: Yes Status: Acute Assessment & Plan: Rate currently controlled; will try small dose toprol for rate control as it doesn't interfere with her Eliquis. Code(s): I48.91 - UNSPECIFIED ATRIAL FIBRILLATION (2) COPD exacerbation Current Visit: No Status: Acute Assessment & Plan: add rocephin and zithromax; day #1 today. Code(s): J44.1 - CHRONIC OBSTRUCTIVE PULMONARY DISEASE W (ACUTE) EXACERBATION (3) Generalized weakness Current Visit: No Status: Acute Assessment & Plan: consult PT Code(s): R53.1 - WEAKNESS
[2019-04-25] MEDS: Toprol-Xl 25MG Tablets PO SCH ×2 (09:15→10:58)
[2019-04-25] MEDS ORDERED: NON-FORMULARY ITEM (Omeprazole 20 Mg [Prilosec 20 Mg] 40 MG) PO SCH (10:00)
[2019-04-25] MEDS: Protonix 40MG Tablet PO SCH (10:35)
[2019-04-25] MEDS: SYNTHROID 125 MCG PO SCH (10:35)
[2019-04-25] MEDS: Cymbalta 30 MG Capsule PO SCH (10:35)
[2019-04-25] MEDS: ELIQUIS 2.5 MG TABLET PO SCH ×2 (10:35→21:18)
[2019-04-25] MEDS: Klor Con 10 MEQ PO SCH ×2 (10:35→21:19)
[2019-04-25] MEDS: ROCEPHIN 1 Gm-D5w 50 ml Bag** 1 G/50 ML IVPB IV SCH (10:36)
[2019-04-25] MEDS: Zithromax 500 MG/ 250 ML NaCl Premix 500 MG/250 ML IVPB IV SCH (11:23)
[2019-04-25] MEDS: xanAX 0.25 MG PO PRN ×2 (11:48→21:20)
[2019-04-25] MEDS: Voltaren GEL TOP SCH ×3 (12:33→21:21)
[2019-04-25] MEDS: Sodium Chloride 0.9% 1000 ML 1,000 ML IV SCH (15:36)
[2019-04-25] MEDS: Mirapex 0.5 MG Tablet PO SCH (21:18)
[2019-04-25] MEDS: BUSPAR 5 MG PO SCH (21:19)
[2019-04-25] MEDS: NORCO 5/325 MG PO PRN (21:19)
[2019-04-25] MEDS: PATIENT OWN MEDICATION PO SCH (21:21)
[2019-04-26] MEDS: Advair Hfa 115/21 Common canister IH SCH ×2 (07:39→19:32)
[2019-04-26] MEDS: CARDIZEM DRIP 100 MG/100 ML D5W 100 ML IV SCH (07:42)
[2019-04-26] MEDS: ROCEPHIN 1 Gm-D5w 50 ml Bag** 1 G/50 ML IVPB IV SCH (09:06)
[2019-04-26] MEDS: Cymbalta 30 MG Capsule PO SCH (09:07)
[2019-04-26] MEDS: Toprol-Xl 25MG Tablets PO SCH (09:07)
[2019-04-26] MEDS: Zithromax 500 MG/ 250 ML NaCl Premix 500 MG/250 ML IVPB IV SCH (09:07)
[2019-04-26] MEDS: Voltaren GEL TOP SCH ×3 (09:08→21:05)
[2019-04-26] MEDS: Protonix 40MG Tablet PO SCH (09:08)
[2019-04-26] MEDS: ELIQUIS 2.5 MG TABLET PO SCH ×2 (09:08→21:04)
[2019-04-26] MEDS: SYNTHROID 125 MCG PO SCH (09:08)
[2019-04-26] MEDS: Klor Con 10 MEQ PO SCH ×2 (09:08→21:04)
[2019-04-26] MEDS: NORCO 5/325 MG PO PRN ×2 (09:09→21:03)
--- NOTE | 2019-04-26 11:23 | PCM.NOTE ---
Date and Time: 04/26/19 1119 Subjective Assessment: Patient reports she feels weak and needs to regain some strength. She is usually ambulatory at home and lives at home without any problems. She is asking about causes for a. fib. Dr. Ruiz did see her. - Review of Systems Constitutional: Weakness Eyes: No Symptoms Ears, Nose, & Throat: No Symptoms Respiratory: No Symptoms Cardiac: No Symptoms Abdominal/Gastrointestinal: No Symptoms Genitourinary Symptoms: No Symptoms Musculoskeletal: No Symptoms Skin: No Symptoms Objective Exam General Appearance: no apparent distress Neurologic Exam: alert, cooperative, normal mood/affect Skin Exam: normal color, warm, dry Respiratory Exam: normal breath sounds, lungs clear, No crackles/rales, No rhonchi, No wheezing Cardiovascular Exam: regular rate/rhythm, normal heart sounds, No murmur, No friction rub, No gallop Gastrointestinal/Abdomen Exam: soft, normal bowel sounds, No tenderness, No distention, No mass Extremity Exam: other (no c/c/e) OBJECTIVE DATA Vital Signs: Vital Signs - 24 hr Temp Pulse Resp BP Pulse Ox 04/26/19 07:42 97.8 F 84 20 163/81 93 L 04/26/19 07:39 67 22 92 L 04/26/19 04:00 98.7 F 61 16 163/81 94 L 04/26/19 00:01 72 04/26/19 00:00 98.5 F 72 21 136/78 92 L 04/25/19 20:00 98.3 F 72 20 140/76 97 04/25/19 19:43 69 20 95 04/25/19 16:00 98.2 F 66 18 161/79 96 04/25/19 12:00 69 04/25/19 11:48 98.3 F 71 24 137/103 96 Pain Assessment - Last Documented Pain Intensity 6 Pain Scale Used 0-10 Pain Scale Intake and Output: Intake & Output 04/24/19 04/25/19 04/26/19 04/27/19 06:59 06:59 06:59 06:59 Intake Total 3086 1137 Output Total 1425 300 Balance 1661 1137 -300 Weight 58 kg 58 kg Radiology Exams: Radiology Procedures Category Date Time Status CHEST 1 VIEW (PORTABLE) Routine Exams 04/24/19 16:30 Completed ECHO W/2D AND DOPPLER [US] Routine Exams 04/25/19 08:00 Taken KUB Routine Exams 04/24/19 12:30 Completed Multi-Disciplinary Progress Notes: Multi-Disciplinary Progress Notes 04/25/19 11:44 Case Management Note by Maty Paidlla PATIENT HAS [facility]BER [facility]- NURSING TO FAX DC INFO INCLUDING MED LIST AND INSTRUCTIONS TO [facility] AT TIME OF DC AND CALL THEM TO LET THEM KNOW SHE IS DISCHARGING. THIS INFO PLACED ON REPORT SHEET FOR NURSING STAFF Initialized on 04/25/19 11:44 - END OF NOTE Assessment/Plan (1) Paroxysmal atrial fibrillation Current Visit: Yes Status: Acute Assessment & Plan: Currently in sinus rhythm with rate controlled. Dr. Ruiz saw her yesterday. She is on anticoagulation. will try to increase activity today. Code(s): I48.0 - PAROXYSMAL ATRIAL FIBRILLATION (2) Generalized weakness Current Visit: No Status: Acute Assessment & Plan: Will try to increase activity today. Code(s): R53.1 - WEAKNESS (3) COPD (chronic obstructive pulmonary disease) Current Visit: No Status: Chronic Qualifiers: COPD type: chronic bronchitis Chronic bronchitis type: simple Qualified Code(s): J41.0 - Simple chronic bronchitis Assessment & Plan: Continue home medication. (4) CAD (coronary artery disease) Current Visit: Yes Status: Acute Assessment & Plan: Continue home medication. Code(s): I25.10 - ATHSCL HEART DISEASE OF [place] CORONARY ARTERY W/O ANG PCTRS (5) Chronic pain Current Visit: Yes Status: Acute Assessment & Plan: Continue home medication. Code(s): G89.29 - OTHER CHRONIC PAIN
[2019-04-26] MEDS: Sodium Chloride 0.9% 1000 ML 1,000 ML IV SCH (11:33)
[2019-04-26] MEDS: xanAX 0.25 MG PO PRN (21:03)
[2019-04-26] MEDS: BUSPAR 5 MG PO SCH (21:04)
[2019-04-26] MEDS: Mirapex 0.5 MG Tablet PO SCH (21:04)
[2019-04-26] MEDS: PATIENT OWN MEDICATION PO SCH (21:05)
[2019-04-27] MEDS: Klor Con 10 MEQ PO SCH (09:19)
[2019-04-27] MEDS: Cymbalta 30 MG Capsule PO SCH (09:19)
[2019-04-27] MEDS: ELIQUIS 2.5 MG TABLET PO SCH (09:19)
[2019-04-27] MEDS: Toprol-Xl 25MG Tablets PO SCH (09:19)
[2019-04-27] MEDS: SYNTHROID 125 MCG PO SCH (09:19)
[2019-04-27] MEDS: Protonix 40MG Tablet PO SCH (09:19)
[2019-04-27] MEDS: ROCEPHIN 1 Gm-D5w 50 ml Bag** 1 G/50 ML IVPB IV SCH (09:20)
[2019-04-27] MEDS: Voltaren GEL TOP SCH (09:21)
[2019-04-27] MEDS: xanAX 0.25 MG PO PRN (09:26)
[2019-04-27] MEDS: Zithromax 500 MG/ 250 ML NaCl Premix 500 MG/250 ML IVPB IV SCH (09:34)
--- NOTE | 2019-04-27 09:42 | PCM.DCORD ---
- Discharge Discharge Date: 04/27/19 Disposition: Home, Self-Care Condition: Fair Prescriptions: New Metoprolol Succinate 25 mg Xl* [Toprol-Xl 25MG Tablets] 25 mg PO DAILY # 30 tab Azithromycin 250 mg [Zithromax 250 MG TABLET] 250 mg PO DAILY #2 tablet Continue Omeprazole 20 MG [Prilosec 20 mg] 40 mg PO DAILY Multivitamin [Multi-Vitamin Daily] 1 each PO DAILY Hydrocodone Bit/Acetaminophen [[place] 5-325 Tablet] 1 each PO TIDPRN PRN PRN Reason: Pain Potassium Chloride 20 Meq [Klor-Con 20 MEQ] 20 meq BID Buspirone HCl [Buspar] 5 mg PO HS Alprazolam 0.25 mg [xanAX 0.25 MG] 0.25 mg PO BID PRN PRN PRN Reason: Anxiety Alendronate Sodium 70 mg PO WEEKLY Buprenorphine HCl [Belbuca] 300 mcg BC Q12H Apixaban [Eliquis] 2.5 mg PO BID Cyproheptadine HCl 8 mg PO HS Fluticasone/Salmeterol Disc [Advair 250-50 Diskus 14 Dose] 1 puff IH BID Duloxetine HCl 30 mg PO DAILY Meclizine HCl 25 mg PO TIDPRN PRN PRN Reason: Dizziness Diclofenac Sodium Gel [Voltaren GEL] 2 g TOP TID Levothyroxine Sodium 125 mcg PO DAILY Discontinued Clopidogrel Bisulfate 75 mg [PLAVIX 75 MG Tablet] 75 mg PO DAILY Additional Instructions: Return to ER if chest pain, shortness of breath or any other concerns. Follow up with: HARVEY CARMONA [Primary Care Provider] - 1 Week RUTHIE GOLDSTEIN [ACTIVE STAFF] - 1 Week
[2019-04-27 12:43] VITALS: BP 144/83; PULSE 75; O2SAT 96
[2019-04-27 13:00] LABS: Bacteria RARE /HPF (NEGATIVE); Bilirubin NEGATIVE (NEGATIVE); Blood LARGE Ery/ul (0-5); Glucose NEGATIVE (NEGATIVE); Ketones NEGATIVE (NEGATIVE); Leukocyte Esterase TRACE (NEGATIVE); Nitrite NEGATIVE (NEGATIVE); Protein,Urine Dip 100 (Negative); Specific Gravity 1.015 (1.005-1.025); Urobilinogen NEGATIVE mg/dL (0-1)
[2019-04-27 13:01] LABS: RBC >101 /HPF (0-2)
[2019-04-27 13:02] LABS: Appearance CLOUDY (CLEAR)
--- NOTE | 2019-04-28 13:16 | ECHO ---
Transthoracic echocardiographic examination and color Doppler was done on 04/25/2019. INDICATION: Atrial fibrillation, shortness of breath. IMPRESSION: 1) NO REGIONAL WALL MOTION ABNORMALITY. ESTIMATED GLOBAL LEFT VENTRICULAR EJECTION FRACTION BETWEEN 50 AND 60%. 2) TRACE MITRAL REGURGITATION. 3) TRACE AORTIC REGURGITATION. 4) TRACE TRICUSPID REGURGITATION. RIGHT VENTRICULAR SYSTOLIC PRESSURE OF 21 MM OF MERCURY. The left ventricle is visualized and demonstrated adequate motion of all the segments. Estimated global left ventricular ejection fraction is between 50 to 60%. The left ventricular thickness is normal. The mitral valve is seen and this opens adequately. There is trace mitral regurgitation. Left atrium is normal. The aortic valve is mildly thickened but opens adequately. There is no significant gradient across the left ventricular outflow tract. There is trace aortic regurgitation. The right side chambers are normal with normal right ventricular contractility. There is trace tricuspid regurgitation. The right ventricular systolic pressure of 21 mm of Mercury.
--- NOTE | 2019-04-29 14:21 | DS ---
DISCHARGE DIAGNOSES: 1) PAROXYSMAL ATRIAL FIBRILLATION. 2) GENERALIZED WEAKNESS. 3) CHRONIC OBSTRUCTIVE PULMONARY DISEASE. 4) CORONARY ARTERY DISEASE. 5) CHRONIC PAIN. DISCHARGE PHYSICAL EXAMINATION: VITALS: Temperature current 98.6F, temperature max 99.0F, heart rate 72, respiratory rate 22, blood [id number]. Oxygen saturation 93% on room air. GENERAL: The patient is a pleasant talkative lady lying in bed in no acute distress asking to go home. CVS: She has a regular rate and rhythm. No murmurs, gallops or rubs are appreciated. CHEST: Clear to auscultation bilaterally. No crackles or wheezes. ABDOMEN: Soft, nontender, nondistended with normal bowel sounds. EXTREMITIES: No clubbing, cyanosis or edema. SKIN: Warm, dry and intact. HOSPITAL COURSE: 1) PAROXYSMAL ATRIAL FIBRILLATION: She was in rapid ventricular response when she was first admitted and on Cardizem drip, this was then transitioned to metoprolol by mouth. Dr. Ruiz saw her and an echocardiogram was done. I have not seen a formal report on that. Will plan to continue Eliquis which she was already on for anticoagulation and have her take metoprolol at home and follow up with her primary care doctor, Dr. Golden and Dr. Ruiz. The patient had been able to ambulate well in the [place] without any more episodes of tachycardia and would like to go home today. She has home health care. 2) GENERALIZED WEAKNESS: This improved with increased activity and the patient felt like she was able to take care of herself at home and so did her primary nurse. 3) CHRONIC OBSTRUCTIVE PULMONARY DISEASE: She was continued on her home medication. Dr. Golden had started on ceftriaxone and azithromycin. The patient received three days' worth of this in the hospital, will plan to continue two more days' worth of azithromycin as an outpatient. 4) CORONARY ARTERY DISEASE: She was continued on home medication. It is unclear whether or not she was taking Plavix at home but being on Eliquis she probably should not be unless Dr. Ruiz directs her to be. 5) CHRONIC PAIN: Will continue her home medication. DISCHARGE MEDICATIONS: Please see the discharge order. FOLLOW UP: Follow up with Dr. Ruiz and Dr. Golden. DISPOSITION: The patient was discharged to home in fair condition.
== END 2019-04-27 12:10 | disposition home or self-care (01) | DRG 309 ==
LOC: ICU 11:48 → MED SURG 04-26 19:30
PROVIDERS: ADMIT Family Medicine; ATTEND Family Medicine
DX: I48.0 Paroxysmal atrial fibrillation (principal); J44.1 Chronic obstructive pulmonary disease with (acute) exacerbation; R53.1 Weakness; I25.10 Atherosclerotic heart disease of native coronary artery without angina pectoris; G89.29 Other chronic pain; I10 Essential (primary) hypertension; E78.00 Pure hypercholesterolemia, unspecified; R10.2 Pelvic and perineal pain; Z79.01 Long term (current) use of anticoagulants; Z79.899 Other long term (current) drug therapy
CPT/HCPCS: 36415; 71045; 74018; 80053; 81001; 83880; 84443; 84484; 85025; 87086; 93005; 93306; 94640; 94760; 94762; J0456; J0696; A9270-GY

== ENCOUNTER 2019-07-04 16:11 | Observation (INO) | payer MEDICARE ==
[2019-07-04] MEDS ORDERED: Sodium Chloride 0.9% 1000 ML 1,000 ML IV STA (16:33)
[2019-07-04] MEDS ORDERED: Sodium Chloride 0.9% 1000 ML 1,000 ML ONE (16:48)
[2019-07-04 16:54] LABS: BASOPHIL % 0.3 % (0.0-0.4); Basophil (Absolute #) 0.02 (0-0.4); Eosinophil % 1.2 % (0.00-5.0); Eosinophil (Absolute #) 0.08 (0-0.5); Hematocrit 32.7 % (35-47); Hemoglobin 9.3 gm/dl (12.0-16.0); Lymphocyte (Absolute #) 2.07 (1.0-4.6); Lymphocytes % 29.8 % (24.0-44.0); Mean Cell Volume 95.6 fl (78-100); Mean Corpuscular Hemoglobin 27.2 pg (26-32); Mean Corpuscular Hgb Concent. 28.4 g/dl (32-36); Mean Platelet Volume 9.7 fl (7.5-11.0); Monocyte (Absolute #) 0.78 (0.0-1.3); Monocytes % 11.2 % (0.0-12.0); Neutrophil % 57.5 % (36.0-66.0); Platelet Count 225 K/mm3 (150-450); Red Blood Count 3.42 M/mm3 (4.1-5.4); Red Cell Distribution Width 22.4 % (11.5-14.0)
[2019-07-04 17:02] LABS: INR 1.2 (0.8-3.0); PROTIME 13.6 SECONDS (9.95-12.35)
[2019-07-04 17:16] LABS: ALBUMIN 3.6 g/dL (3.5-5.0); ANION GAP 13.3 MEQ/L (5-15); BILIRUBIN,TOTAL 0.8 mg/dL (0.2-1.3); Calcium 9.1 mg/dL (8.4-10.2); Creatinine 1 1.3 mg/dL (0.52-1.04); MAGNESIUM 1.8 mg/dL (1.6-2.3); Total Protein 6.6 g/dL (6.3-8.2)
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
[2019-07-04] MEDS ORDERED: MILK OF MAGNESIA 30 ML PO PRN (17:55)
[2019-07-04] MEDS ORDERED: MAALOX ES 30 ML UNIT DOSE PO PRN (17:55)
[2019-07-04] MEDS ORDERED: Senokot-S Tablet PO PRN (17:55)
[2019-07-04] MEDS ORDERED: Zofran 4 MG/2 ML VIAL IV PRN (17:55)
[2019-07-04] MEDS ORDERED: TYLENOL 325 MG PO PRN (17:55)
[2019-07-04] MEDS: Advair Hfa 115/21 Common canister IH SCH (20:18)
[2019-07-04] MEDS ORDERED: xanAX 0.25 MG PO PRN (21:22)
[2019-07-04] MEDS ORDERED: NORCO 5/325 MG PO PRN (21:28)
[2019-07-04] MEDS ORDERED: Mirapex 0.5 MG Tablet PO PRN (21:29)
--- NOTE | 2019-07-04 21:42 | XRAY ---
Indication: Palpitations. Tachycardia. Comparison: April 24, 2019. Portable chest demonstrates left costophrenic angle nodule as seen on CT chest January 02, 2019. Repeat CT chest may evaluate interval change. Remaining heart and lungs unremarkable with stable tortuous descending aorta. Bony thorax intact again without osteopenia, degenerative changes, and L1 kyphoplasty.
[2019-07-04] MEDS ORDERED: BUSPAR 5 MG PO SCH (22:00)
[2019-07-04] MEDS: Klor Con 10 MEQ PO SCH (22:19)
[2019-07-04] MEDS: Voltaren GEL TOP SCH (22:44)
[2019-07-04] MEDS: ELIQUIS 2.5 MG TABLET PO SCH (22:44)
[2019-07-05 05:43] LABS: Risk Ratio 2.5
[2019-07-05] MEDS ORDERED: xanAX 0.25 MG PO PRN (07:45)
[2019-07-05] MEDS ORDERED: Sodium Chloride 0.9% 10 ML FLUSH Syringe IV PRN (07:45)
[2019-07-05] MEDS: Advair Hfa 115/21 Common canister IH SCH (08:04)
[2019-07-05] MEDS: Klor Con 10 MEQ PO SCH (09:03)
[2019-07-05] MEDS: ELIQUIS 2.5 MG TABLET PO SCH (09:04)
[2019-07-05] MEDS: Voltaren GEL TOP SCH (09:04)
[2019-07-05] MEDS ORDERED: Toprol Xl 50 MG PO SCH (10:00)
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
[2019-07-05 12:07] VITALS: BP 131/70; PULSE 78; O2SAT 93
[2019-07-05] MEDS ORDERED: Sodium Chloride 0.9% 10 ML FLUSH Syringe IV SCH (14:00)
== END 2019-07-05 11:55 | disposition home or self-care (01) ==
LOC: ED 16:11 → MED SURG 18:45
PROVIDERS: ADMIT Family Medicine; ATTEND Family Medicine
DX: I48.0 Paroxysmal atrial fibrillation (principal); J44.9 Chronic obstructive pulmonary disease, unspecified; I10 Essential (primary) hypertension; E03.9 Hypothyroidism, unspecified; R53.1 Weakness; I25.10 Atherosclerotic heart disease of native coronary artery without angina pectoris; R06.02 Shortness of breath; R30.0 Dysuria; G25.81 Restless legs syndrome; R31.9 Hematuria, unspecified; G89.29 Other chronic pain; E78.00 Pure hypercholesterolemia, unspecified; F17.200 Nicotine dependence, unspecified, uncomplicated; Z79.899 Other long term (current) drug therapy; Z79.01 Long term (current) use of anticoagulants
CPT/HCPCS: 36000; 36415; 71045; 80053; 80061; 82150; 83605; 83690; 83721; 83735; 83880; 84484; 85025; 85610; 93005; 93268; 94640; 94760; 96360; 99284; A9270-GY; G0378

== ENCOUNTER 2019-08-22 14:36 | Inpatient (IN) | payer MEDICARE ==
[2019-08-22] MEDS ORDERED: Sodium Chloride 0.9% 10 ML FLUSH Syringe IV PRN (15:15)
[2019-08-22 15:38] LABS: Absolute Neutrophil Ct (ANC) 4.83 (1.4-6.9); BASOPHIL % 0.1 % (0.0-0.4); Basophil (Absolute #) 0.01 (0-0.4); Eosinophil (Absolute #) 0 (0-0.5); Hematocrit 27.3 % (35-47); Hemoglobin 7.9 gm/dl (12.0-16.0); Lymphocyte (Absolute #) 1.82 (1.0-4.6); Lymphocytes % 23.9 % (24.0-44.0); Mean Cell Volume 88.1 fl (78-100); Mean Corpuscular Hemoglobin 25.5 pg (26-32); Mean Corpuscular Hgb Concent. 28.9 g/dl (32-36); Mean Platelet Volume 10.5 fl (7.5-11.0); Monocyte (Absolute #) 0.95 (0.0-1.3); Monocytes % 12.5 % (0.0-12.0); Neutrophil % 63.5 % (36.0-66.0); Platelet Count 203 K/mm3 (150-450); Red Cell Distribution Width 22.3 % (11.5-14.0); White Blood Count 7.6 K/mm3 (4.0-10.5)
[2019-08-22 15:56] LABS: ALBUMIN 3.7 g/dL (3.5-5.0); ANION GAP 13.4 MEQ/L (5-15); BILIRUBIN,TOTAL 0.4 mg/dL (0.2-1.3); Calcium 8.9 mg/dL (8.4-10.2); Creatinine 1 1.05 mg/dL (0.52-1.04); Potassium 5.1 mmol/L (3.5-5.1); Total Protein 6.7 g/dL (6.3-8.2)
[2019-08-22] MEDS ORDERED: VENTOLIN COMMON CANISTER IH PRN (16:01)
[2019-08-22 16:18] LABS: Appearance CLOUDY (CLEAR); Bacteria RARE /HPF (NEGATIVE); Bilirubin NEGATIVE (NEGATIVE); Blood MODERATE Ery/ul (0-5); Epithelial Cells RARE /HPF (FEW); Glucose NEGATIVE (NEGATIVE); Ketones NEGATIVE (NEGATIVE); Leukocyte Esterase LARGE (NEGATIVE); Mucus SLIGHT /HPF (NEGATIVE); Nitrite NEGATIVE (NEGATIVE); Protein,Urine Dip 100 (Negative); RBC 51-100 /HPF (0-2); Specific Gravity 1.023 (1.005-1.025); Urobilinogen NEGATIVE mg/dL (0-1); WBC >100 /HPF (0-5)
[2019-08-22] MEDS ORDERED: Voltaren GEL TOP PRN (17:14)
[2019-08-22] MEDS ORDERED: Colace 100 MG PO PRN (17:14)
[2019-08-22] MEDS ORDERED: BUPRENORPHINE HCL 300 MCG BC SCH (17:15)
[2019-08-22] MEDS ORDERED: MEDICATION INTERVENTION PO SCH (17:30)
[2019-08-22] MEDS: NORCO 5/325 MG PO PRN ×2 (17:43→21:44)
[2019-08-22] MEDS ORDERED: Sodium Chloride 0.9% 500 ML 500 ML IV SCH (18:00)
[2019-08-22 18:13] LABS: ABO TYPING O; Antibody Screen NEGATIVE (NEGATIVE); RH TYPING NEGATIVE
[2019-08-22 18:15] LABS: CROSS MATCH (PRBC) COMPATIBLE (COMPATIBLE)
[2019-08-22 18:42] LABS: Slide Review 1 YES
[2019-08-22] MEDS: Advair Hfa 115/21 Common canister IH SCH (21:30)
[2019-08-22] MEDS: ELIQUIS 2.5 MG TABLET PO SCH (21:44)
[2019-08-22] MEDS: BUSPAR 5 MG PO SCH (21:45)
[2019-08-22] MEDS: ANTIVERT 25 MG PO SCH (21:45)
[2019-08-22] MEDS: Mirapex 0.5 MG Tablet PO PRN (21:45)
[2019-08-22] MEDS: Klor Con 10 MEQ PO SCH (21:45)
[2019-08-22] MEDS ORDERED: BUSPIRONE HCL 5 MG PO SCH (22:00)
[2019-08-22] MEDS ORDERED: NON-FORMULARY ITEM (Potassium Chloride 20 Meq [Klor-Con 20 Meq] 20 MEQ) PO SCH (22:00)
[2019-08-22] MEDS ORDERED: CYPROHEPTADINE HCL PO SCH (22:00)
[2019-08-23] MEDS: xanAX 0.25 MG PO PRN ×2 (02:27→21:49)
[2019-08-23 06:13] LABS: Hematocrit 34.9 % (35-47); Hemoglobin 10.7 gm/dl (12.0-16.0)
[2019-08-23] MEDS: Advair Hfa 115/21 Common canister IH SCH ×2 (07:33→17:23)
[2019-08-23] MEDS: Protonix 40MG Tablet PO SCH (09:31)
[2019-08-23] MEDS: Cymbalta 30 MG Capsule PO SCH (09:31)
[2019-08-23] MEDS: Lanoxin 0.125MG TABLET PO SCH (09:31)
[2019-08-23] MEDS: SYNTHROID 125 MCG PO SCH (09:31)
[2019-08-23] MEDS: ANTIVERT 25 MG PO SCH ×3 (09:32→21:47)
[2019-08-23] MEDS: Klor Con 10 MEQ PO SCH ×2 (09:33→21:46)
[2019-08-23] MEDS: ELIQUIS 2.5 MG TABLET PO SCH ×2 (09:33→21:46)
[2019-08-23] MEDS ORDERED: Toprol Xl 50 MG PO SCH (10:00)
[2019-08-23] MEDS ORDERED: KEFLEX 250 MG PO SCH (10:00)
[2019-08-23] MEDS ORDERED: NON-FORMULARY ITEM (Omeprazole 20 Mg [Prilosec 20 Mg] 40 MG) PO SCH (10:00)
[2019-08-23] MEDS ORDERED: Toprol-Xl 25MG Tablets PO SCH ×2 (10:00→22:00)
[2019-08-23] MEDS: ROCEPHIN 1 Gm-D5w 50 ml Bag** 1 G/50 ML IVPB IV SCH (12:51)
--- NOTE | 2019-08-23 16:07 | PCM.NOTE ---
Date and Time: 08/23/19 1602 Subjective Assessment: Pt is still running 120s (pulse). Still feeling SOB. Is feeling better after receiving 2 units PRBC. - Review of Systems Constitutional: No Fever Respiratory: Short Of Breath Cardiac: Palpitations Objective Exam General Appearance: no apparent distress, anxiety Neurologic Exam: alert, cooperative Skin Exam: normal color, warm, dry, No rash Neck Exam: normal inspection Respiratory Exam: normal breath sounds, lungs clear, No crackles/rales, No rhonchi, No wheezing Cardiovascular Exam: tachycardia, irregular, No murmur Gastrointestinal/Abdomen Exam: soft, normal bowel sounds, No tenderness, No distention, No mass, No guarding, No rebound Extremity Exam: swelling (tr pretibial edema bilat) OBJECTIVE DATA Vital Signs: Vital Signs - 24 hr Temp Pulse Resp BP BP Pulse Ox 08/23/19 12:00 98.2 F 124 H 150/104 95 08/23/19 09:31 124 H 106/89 08/23/19 08:14 95 08/23/19 07:45 98.2 F 113 H 18 150/104 92 L 08/23/19 07:37 126 H 20 90 L 08/23/19 04:00 98.2 F 107 H 15 144/86 93 L 08/23/19 00:00 98.1 F 112 H 14 125/82 94 L 08/22/19 21:32 113 H 17 94 L 08/22/19 20:00 98.2 F 118 H 17 110/86 94 L 08/22/19 16:04 112 H 16 96 Pain Assessment - Last Documented Pain Intensity 5 Pain Scale Used 0-10 Pain Scale Intake and Output: Intake & Output 08/21/19 08/22/19 08/23/19 08/24/19 11:59 11:59 11:59 11:59 Intake Total 340 Output Total 30 Balance 310 Weight 59 kg Lab Results: Lab Results-Last 24 Hours 08/22/19 08/22/19 08/22/19 Range/Units 14:48 15:00 16:00 Hgb (12.0-16.0) gm/dl Hct (35-47) % Sodium 141 (137-145) mmol/L Potassium 5.1 (3.5-5.1) mmol/L Chloride 107 (98-107) mmol/L Carbon Dioxide 26 (22-30) mmol/L Anion Gap 13.4 (5-15) MEQ/L BUN 31 H (7-17) mg/dL Creatinine 1.05 H (0.52-1.04) mg/dL Estimated GFR 52.7 ML/MIN Glucose 95 (74-106) mg/dL Calcium 8.9 (8.4-10.2) mg/dL Total Bilirubin 0.40 (0.2-1.3) mg/dL AST 25 (14-36) U/L ALT 21 (0-35) U/L Alkaline Phosphatase 85 (38-126) U/L Serum Total Protein 6.7 (6.3-8.2) g/dL Albumin 3.7 (3.5-5.0) g/dL TSH 3rd Generation 0.833 (0.47-4.68) mIU/L Urine Color (YELLOW) Urine Appearance (CLEAR) Urine pH (5-6) Ur Specific [place] (1.005-1.025) Urine Protein (Negative) Urine Ketones (NEGATIVE) Urine Blood (0-5) Ash/ul Urine Nitrite (NEGATIVE) Urine Bilirubin (NEGATIVE) Urine Urobilinogen (0-1) mg/dL Ur Leukocyte Esterase (NEGATIVE) Urine WBC (Auto) (0-5) /HPF Urine RBC (Auto) (0-2) /HPF U Epithel Cells (Auto) (FEW) /HPF Urine Bacteria (Auto) (NEGATIVE) /HPF Urine Mucus (Auto) (NEGATIVE) /HPF Urine Culture Reflexed (NO) Urine Glucose (NEGATIVE) mg/dL Slides for Path Review ABO Group Rh Factor Antibody Screen (NEGATIVE) Crossmatch COMPATIBLE (COMPATIBLE) 08/22/19 08/22/19 08/22/19 Range/Units 16:00 16:25 Unknown Hgb (12.0-16.0) gm/dl Hct (35-47) % Sodium (137-145) mmol/L Potassium (3.5-5.1) mmol/L Chloride (98-107) mmol/L Carbon Dioxide (22-30) mmol/L Anion Gap (5-15) MEQ/L BUN (7-17) mg/dL Creatinine (0.52-1.04) mg/dL Estimated GFR ML/MIN Glucose (74-106) mg/dL Calcium (8.4-10.2) mg/dL Total Bilirubin (0.2-1.3) mg/dL AST (14-36) U/L ALT (0-35) U/L Alkaline Phosphatase (38-126) U/L Serum Total Protein (6.3-8.2) g/dL Albumin (3.5-5.0) g/dL TSH 3rd Generation (0.47-4.68) mIU/L Urine Color (YELLOW) Urine Appearance (CLEAR) Urine pH (5-6) Ur Specific [place] (1.005-1.025) Urine Protein (Negative) Urine Ketones (NEGATIVE) Urine Blood (0-5) Ash/ul Urine Nitrite (NEGATIVE) Urine Bilirubin (NEGATIVE) Urine Urobilinogen (0-1) mg/dL Ur Leukocyte Esterase (NEGATIVE) Urine WBC (Auto) (0-5) /HPF Urine RBC (Auto) (0-2) /HPF U Epithel Cells (Auto) (FEW) /HPF Urine Bacteria (Auto) (NEGATIVE) /HPF Urine Mucus (Auto) (NEGATIVE) /HPF Urine Culture Reflexed (NO) Urine Glucose (NEGATIVE) mg/dL Slides for Path Review YES ABO Group O Rh Factor NEGATIVE Antibody Screen NEGATIVE (NEGATIVE) Crossmatch COMPATIBLE (COMPATIBLE) 08/22/19 08/23/19 Range/Units Unknown 05:50 Hgb 10.7 L D (12.0-16.0) gm/dl Hct 34.9 L (35-47) % Sodium (137-145) mmol/L Potassium (3.5-5.1) mmol/L Chloride (98-107) mmol/L Carbon Dioxide (22-30) mmol/L Anion Gap (5-15) MEQ/L BUN (7-17) mg/dL Creatinine (0.52-1.04) mg/dL Estimated GFR ML/MIN Glucose (74-106) mg/dL Calcium (8.4-10.2) mg/dL Total Bilirubin (0.2-1.3) mg/dL AST (14-36) U/L ALT (0-35) U/L Alkaline Phosphatase (38-126) U/L Serum Total Protein (6.3-8.2) g/dL Albumin (3.5-5.0) g/dL TSH 3rd Generation (0.47-4.68) mIU/L Urine Color YELLOW (YELLOW) Urine Appearance CLOUDY (CLEAR) Urine pH 5.0 (5-6) Ur Specific [place] 1.023 (1.005-1.025) Urine Protein 100 (Negative) Urine Ketones NEGATIVE (NEGATIVE) Urine Blood MODERATE (0-5) Ash/ul Urine Nitrite NEGATIVE (NEGATIVE) Urine Bilirubin NEGATIVE (NEGATIVE) Urine Urobilinogen NEGATIVE (0-1) mg/dL Ur Leukocyte Esterase LARGE (NEGATIVE) Urine WBC (Auto) >100 (0-5) /HPF Urine RBC (Auto) 51-100 (0-2) /HPF U Epithel Cells (Auto) RARE (FEW) /HPF Urine Bacteria (Auto) RARE (NEGATIVE) /HPF Urine Mucus (Auto) SLIGHT (NEGATIVE) /HPF Urine Culture Reflexed YES (NO) Urine Glucose NEGATIVE (NEGATIVE) mg/dL Slides for Path Review ABO Group Rh Factor Antibody Screen (NEGATIVE) Crossmatch (COMPATIBLE) Assessment/Plan (1) Atrial fibrillation with rapid ventricular response Current Visit: No Status: Acute Assessment & Plan: Changing toprol from 75mg/d to 100mg total (will give second 50mg dose today now, for a total of 125mg today). I have sent a message to Dr. Ruiz in the event he wants any changes. Code(s): I48.91 - UNSPECIFIED ATRIAL FIBRILLATION (2) Anemia Current Visit: Yes Status: Acute Qualifiers: Anemia type: iron deficiency Iron deficiency anemia type: unspecified iron deficiency Qualified Code(s): D50.9 - Iron deficiency anemia, unspecified Assessment & Plan: had 2 units PRBC, her hgb now 10.7 (from 7.9, with sx and CAD). Code(s): D64.9 - ANEMIA, UNSPECIFIED (3) UTI (urinary tract infection) Current Visit: No Status: Acute Qualifiers: Urinary tract infection type: acute cystitis Hematuria presence: without hematuria Qualified Code(s): N30.00 - Acute cystitis without hematuria Assessment & Plan: on Rocephin day #1 today. Code(s): N39.0 - URINARY TRACT INFECTION, SITE NOT SPECIFIED (4) CAD (coronary artery disease) Current Visit: No Status: Chronic Qualifiers: Coronary Disease-Associated Artery/Lesion type: [place] artery [place] vs. transplanted heart: [place] heart Associated angina: without angina Qualified Code(s): I25.10 - Atherosclerotic heart disease of [place] coronary artery without angina pectoris Code(s): I25.10 - ATHSCL HEART DISEASE OF [place] CORONARY ARTERY W/O ANG PCTRS (5) COPD (chronic obstructive pulmonary disease) Current Visit: No Status: Chronic Qualifiers: COPD type: chronic bronchitis Chronic bronchitis type: simple Qualified Code(s): J41.0 - Simple chronic bronchitis (6) HTN (hypertension) Current Visit: No Status: Chronic Qualifiers: Hypertension type: essential hypertension Code(s): I10 - ESSENTIAL (PRIMARY) HYPERTENSION (7) Renal insufficiency Current Visit: No Status: Chronic
[2019-08-23] MEDS: NORCO 5/325 MG PO PRN ×2 (16:12→21:49)
[2019-08-23] MEDS: Sodium Chloride 0.9% 10 ML FLUSH Syringe IV SCH (16:17)
[2019-08-23] MEDS ORDERED: Toprol Xl 50 MG PO ONE (21:33)
[2019-08-23] MEDS: Toprol Xl 50 MG PO SCH ×2 (21:46→22:58)
[2019-08-23] MEDS: Mirapex 0.5 MG Tablet PO PRN (21:46)
[2019-08-23] MEDS: BUSPAR 5 MG PO SCH (21:47)
[2019-08-24] MEDS: Advair Hfa 115/21 Common canister IH SCH ×2 (07:33→17:08)
[2019-08-24] MEDS: ROCEPHIN 1 Gm-D5w 50 ml Bag** 1 G/50 ML IVPB IV SCH (09:08)
[2019-08-24] MEDS: Cymbalta 30 MG Capsule PO SCH (09:09)
[2019-08-24] MEDS: Klor Con 10 MEQ PO SCH ×2 (09:09→21:48)
[2019-08-24] MEDS: ELIQUIS 2.5 MG TABLET PO SCH ×2 (09:10→21:48)
[2019-08-24] MEDS: Protonix 40MG Tablet PO SCH (09:10)
[2019-08-24] MEDS: SYNTHROID 125 MCG PO SCH (09:10)
[2019-08-24] MEDS: ANTIVERT 25 MG PO SCH ×3 (09:10→21:48)
[2019-08-24] MEDS: Lanoxin 0.125MG TABLET PO SCH (11:15)
[2019-08-24] MEDS: Toprol Xl 100 MG PO SCH ×2 (11:16→21:48)
[2019-08-24] MEDS ORDERED: MAXIPIME 1 GM IV SCH (11:30)
[2019-08-24] MEDS: MAXIPIME 1 GM** 1 G in Dextrose 5%/Water IV Soln. 100ML PLUS BAG 100 ML IV SCH ×2 (11:42→21:47)
[2019-08-24] MEDS: NORCO 5/325 MG PO PRN ×2 (11:50→21:48)
[2019-08-24] MEDS ORDERED: PHARMACY DOSING REQUIRED: VANCOMYCIN IV STA (12:08)
[2019-08-24] MEDS: VANCOCIN 500 MG VIAL*** 500 MG in Sodium Chloride 100ML MINI-BAG PLUS 100 ML IV SCH (14:26)
--- NOTE | 2019-08-24 20:20 | PCM.NOTE ---
Date and Time: 08/24/192016 Subjective Assessment: Pt having heart rate mostly around 100, but still up in the 120s with activity.[place] po well. Still feeling SOB. - Review of Systems Constitutional: No Fever Respiratory: Short Of Breath Objective Exam General Appearance: no apparent distress, alert Neurologic Exam: oriented x 3, cooperative Skin Exam: normal color, warm, dry, No rash Respiratory Exam: normal breath sounds, lungs clear, No crackles/rales, No rhonchi, No wheezing Cardiovascular Exam: tachycardia, irregular, No murmur Gastrointestinal/Abdomen Exam: soft, normal bowel sounds, No tenderness, No distention, No mass, No guarding, No rebound Extremity Exam: normal inspection, No pedal edema, No swelling Back Exam: normal inspection, No rash OBJECTIVE DATA Vital Signs: Vital Signs - 24 hr Temp Pulse Resp BP BP Pulse Ox 08/24/19 17:10 96 H 20 94 L 08/24/19 16:00 98.1 F 123 H 22 110/86 92 L 08/24/19 11:40 98.1 F 109 H 22 140/92 94 L 08/24/19 11:15 108 H 140/92 08/24/19 08:04 94 L 08/24/19 07:37 101 H 18 98 08/24/19 07:18 98.2 F 101 H 16 137/77 93 L 08/24/19 04:00 97.8 F 100 H 18 122/81 94 L 08/24/19 00:00 98.9 F 118 H 18 114/76 93 L Pain Assessment - Last Documented Pain Intensity 5 Pain Scale Used 0-10 Pain Scale Intake and Output: Intake & Output 08/22/19 08/23/19 08/24/19 08/25/19 11:59 11:59 11:59 11:59 Intake Total 340 480 240 Output Total 30 Balance 310 480 240 Weight 59 kg Assessment/Plan (1) Atrial fibrillation with rapid ventricular response Current Visit: No Status: Acute Assessment & Plan: She is now on Toprol XL 100mg po BID, will see how she does on that overnight and tomorrow. Dr. Ruiz available for telephone guidance any time. Code(s): I48.91 - UNSPECIFIED ATRIAL FIBRILLATION (2) Anemia Current Visit: Yes Status: Acute Qualifiers: Anemia type: iron deficiency Iron deficiency anemia type: unspecified iron deficiency Qualified Code(s): D50.9 - Iron deficiency anemia, unspecified Assessment & Plan: received 2 units PRBC which made her feel better. Code(s): D64.9 - ANEMIA, UNSPECIFIED (3) UTI (urinary tract infection) Current Visit: No Status: Acute Qualifiers: Urinary tract infection type: acute cystitis Hematuria presence: without hematuria Qualified Code(s): N30.00 - Acute cystitis without hematuria Assessment & Plan: culture results back in - pseudomonas and enterococcus. Changing rocephin to cefepime and vancomycin. Code(s): N39.0 - URINARY TRACT INFECTION, SITE NOT SPECIFIED (4) CAD (coronary artery disease) Current Visit: No Status: Chronic Qualifiers: Coronary Disease-Associated Artery/Lesion type: [place] artery [place] vs. transplanted heart: [place] heart Associated angina: without angina Qualified Code(s): I25.10 - Atherosclerotic heart disease of [place] coronary artery without angina pectoris Code(s): I25.10 - ATHSCL HEART DISEASE OF [place] CORONARY ARTERY W/O ANG PCTRS (5) COPD (chronic obstructive pulmonary disease) Current Visit: No Status: Chronic Qualifiers: COPD type: chronic bronchitis Chronic bronchitis type: simple Qualified Code(s): J41.0 - Simple chronic bronchitis (6) HTN (hypertension) Current Visit: No Status: Chronic Qualifiers: Hypertension type: essential hypertension Assessment & Plan: BP much better able to withstand the toprol since the transfusion. Code(s): I10 - ESSENTIAL (PRIMARY) HYPERTENSION (7) Renal insufficiency Current Visit: No Status: Chronic
[2019-08-24] MEDS: Mirapex 0.5 MG Tablet PO PRN (21:48)
[2019-08-24] MEDS: BUSPAR 5 MG PO SCH (21:48)
[2019-08-24] MEDS: xanAX 0.25 MG PO PRN (21:48)
[2019-08-25 05:19] LABS: Hematocrit 36.5 % (35-47); Hemoglobin 10.7 gm/dl (12.0-16.0); Mean Cell Volume 88.8 fl (78-100); Mean Corpuscular Hgb Concent. 29.3 g/dl (32-36); Mean Platelet Volume 11.2 fl (7.5-11.0); Platelet Count 168 K/mm3 (150-450); Red Blood Count 4.11 M/mm3 (4.1-5.4); Red Cell Distribution Width 21.4 % (11.5-14.0); White Blood Count 9.3 K/mm3 (4.0-10.5)
[2019-08-25 05:45] LABS: ANION GAP 12.5 MEQ/L (5-15); Calcium 8.9 mg/dL (8.4-10.2); Creatinine 1 1.03 mg/dL (0.52-1.04); Potassium 4.7 mmol/L (3.5-5.1)
[2019-08-25] MEDS: Advair Hfa 115/21 Common canister IH SCH ×2 (07:15→17:06)
[2019-08-25] MEDS: VANCOCIN 500 MG VIAL*** 500 MG in Sodium Chloride 100ML MINI-BAG PLUS 100 ML IV SCH (07:56)
[2019-08-25] MEDS: Lanoxin 0.125MG TABLET PO SCH (09:17)
[2019-08-25] MEDS: SYNTHROID 125 MCG PO SCH (09:19)
[2019-08-25] MEDS: Klor Con 10 MEQ PO SCH ×2 (09:19→21:18)
[2019-08-25] MEDS: ANTIVERT 25 MG PO SCH ×3 (09:19→21:17)
[2019-08-25] MEDS: Cymbalta 30 MG Capsule PO SCH (09:19)
[2019-08-25] MEDS: Protonix 40MG Tablet PO SCH (09:19)
[2019-08-25] MEDS: Toprol Xl 100 MG PO SCH ×2 (09:19→21:17)
[2019-08-25] MEDS: ELIQUIS 2.5 MG TABLET PO SCH ×2 (09:20→21:17)
[2019-08-25] MEDS: MAXIPIME 1 GM** 1 G in Dextrose 5%/Water IV Soln. 100ML PLUS BAG 100 ML IV SCH ×2 (09:20→21:16)
[2019-08-25] MEDS: NORCO 5/325 MG PO PRN (14:44)
[2019-08-25] MEDS: Sodium Chloride 0.9% 10 ML FLUSH Syringe IV SCH ×2 (14:54→21:17)
[2019-08-25] MEDS: xanAX 0.25 MG PO PRN (17:12)
[2019-08-25] MEDS: BUSPAR 5 MG PO SCH (21:17)
[2019-08-25] MEDS: Mirapex 0.5 MG Tablet PO PRN (21:17)
--- NOTE | 2019-08-25 22:13 | PCM.NOTE ---
Date and Time: 08/25/192211 Subjective Assessment: 89 yr old female seen and examined today. Patient wants to go home as she has an appt with her pain management dr. She reports that she is anxious. She still has shortness of breath. She had reported to the nurse that she does at times have blood in her urine and she sees a specialist for this. She had no other reported concerns. - Review of Systems Constitutional: No Symptoms Eyes: No Symptoms Ears, Nose, & Throat: No Symptoms Respiratory: Short Of Breath Cardiac: No Chest Pain Abdominal/Gastrointestinal: No Abdominal Pain, No Nausea, No Vomiting, No Diarrhea, No Constipation Genitourinary Symptoms: Hematuria Musculoskeletal: Other (chronic pain) Skin: No Symptoms Neurological: No Symptoms, No Headache Psychological: Anxiety Objective Exam General Appearance: mild distress Neurologic Exam: alert, cooperative, confusion Skin Exam: normal color, warm, dry, No rash Eye Exam: No scleral icterus, No pale conjunctivae Ears, Nose, Throat Exam: moist mucous membranes Respiratory Exam: diminished breath sounds, crackles/rales, other (Patient gets short of breath with speaking), No respiratory distress, No wheezing Cardiovascular Exam: normal heart sounds, irregular, No murmur, No friction rub, No gallop Gastrointestinal/Abdomen Exam: soft, normal bowel sounds, No tenderness, No distention Extremity Exam: normal inspection, No pedal edema, No swelling OBJECTIVE DATA Vital Signs: Vital Signs - 24 hr Temp Pulse Resp BP BP Pulse Ox 08/25/19 21:01 98.5 F 118 H 24 127/102 95 08/25/19 19:44 92 L 08/25/19 18:24 92 H 142/86 08/25/19 17:07 103 H 18 93 L 08/25/19 16:00 98.1 F 103 H 24 144/101 95 08/25/19 12:00 98.7 F 103 H 18 139/90 92 L 08/25/19 09:17 121 H 145/80 08/25/19 07:37 98.8 F 111 H 20 145/88 92 L 08/25/19 07:17 108 H 20 93 L 08/25/19 04:00 98.0 F 99 H 24 145/111 93 L 08/25/19 00:00 98.4 F 99 H 20 136/81 95 Pain Assessment - Last Documented Pain Intensity 3 Pain Scale Used 0-10 Pain Scale Intake and Output: Intake & Output 08/23/19 08/24/19 08/25/19 08/26/19 11:59 11:59 11:59 11:59 Intake Total 229 107 3446 360 Output Total 30 200 Balance 310 480 890 360 Weight 59 kg Lab Results: Lab Results-Last 24 Hours 08/25/19 08/25/19 Range/Units 04:25 04:25 WBC 9.3 (4.0-10.5) K/mm3 RBC 4.11 (4.1-5.4) M/mm3 Hgb 10.7 L (12.0-16.0) gm/dl Hct 36.5 (35-47) % MCV 88.8 (78-100) fl MCH 26.0 (26-32) pg MCHC 29.3 L (32-36) g/dl RDW 21.4 H (11.5-14.0) % Plt Count 168 (150-450) K/mm3 MPV 11.2 H (7.5-11.0) fl Sodium 140 (137-145) mmol/L Potassium 4.7 (3.5-5.1) mmol/L Chloride 107 (98-107) mmol/L Carbon Dioxide 25 (22-30) mmol/L Anion Gap 12.5 (5-15) MEQ/L BUN 29 H (7-17) mg/dL Creatinine 1.03 (0.52-1.04) mg/dL Estimated GFR 53.9 ML/MIN Glucose 116 H (74-106) mg/dL Calcium 8.9 (8.4-10.2) mg/dL Multi-Disciplinary Progress Notes: Multi-Disciplinary Progress Notes 08/25/19 11:54 Case Management Note by Maty Padilla PATIENT HAS [facility]. THEY ARE AWARE SHE IS HERE. WILL NEED NOTIFIED AT TIME OF DC AT [phone]. THEY WILL NEED FAXED THE DC INSTRUCTIONS AND MED LIST WITH DC SUMMARY (IF AVAILABLE) TO [phone] Initialized on 08/25/19 11:54 - END OF NOTE 08/25/19 09:27 Case Management Note by Maty Padilla S/W DR. ZAVALETA'S OFFICE- THEY SAID IF PATIENT UNABLE TO MAKE THE SUNDAY APPOINTM ENT, SHE SHOULD CALL THE OFFICE AND THEY WILL TRY TO WORK HER IN. Initialized on 08/25/19 09:27 - END OF NOTE Assessment/Plan (1) Atrial fibrillation with rapid ventricular response Status: Acute Assessment & Plan: Rate has improved and is closer to around 100. She has occasional chest pains but is not reporting chest pain at this time. Patient is on both digoxin and beta vicky. Her rate has improved but continues to jump up at times. She will continue on tele. Code(s): I48.91 - UNSPECIFIED ATRIAL FIBRILLATION (2) Anemia Status: Acute Qualifiers: Anemia type: iron deficiency Iron deficiency anemia type: unspecified iron deficiency Qualified Code(s): D50.9 - Iron deficiency anemia, unspecified Assessment & Plan: Nurse had reported some nicolette hematuria. Patient reports this is a chronic condition and she sees a urologist for this. We will need to get patient referred to urology. Code(s): D64.9 - ANEMIA, UNSPECIFIED (3) Shortness of breath Status: Acute Assessment & Plan: Patient is still short of breath she reports that she has been short of breath off and on for awhile. Will continue to monitor once her afib is resolved to see about other potential causes of her shortness of breath including copd or chf Code(s): R06.02 - SHORTNESS OF BREATH (4) HTN (hypertension) Status: Chronic Qualifiers: Hypertension type: essential hypertension Qualified Code(s): I10 - Essential (primary) hypertension Assessment & Plan: Patient has had some elevated bp. Will continue to monitor and address. Unsure if this is related to her afib or other etiology. Code(s): I10 - ESSENTIAL (PRIMARY) HYPERTENSION
[2019-08-26] MEDS: Sodium Chloride 0.9% 10 ML FLUSH Syringe IV SCH ×4 (01:00→20:20)
[2019-08-26] MEDS: VANCOCIN 500 MG VIAL*** 500 MG in Sodium Chloride 100ML MINI-BAG PLUS 100 ML IV SCH ×2 (01:00→20:06)
[2019-08-26] MEDS: NORCO 5/325 MG PO PRN ×3 (01:05→20:18)
[2019-08-26 04:54] LABS: Hematocrit 34.7 % (35-47); Hemoglobin 10.3 gm/dl (12.0-16.0); Mean Corpuscular Hemoglobin 26.4 pg (26-32); Mean Corpuscular Hgb Concent. 29.7 g/dl (32-36); Mean Platelet Volume 10.6 fl (7.5-11.0); Platelet Count 141 K/mm3 (150-450); Red Cell Distribution Width 21.3 % (11.5-14.0); White Blood Count 7.7 K/mm3 (4.0-10.5)
[2019-08-26 05:01] LABS: ANION GAP 9.9 MEQ/L (5-15); Calcium 8.5 mg/dL (8.4-10.2); Creatinine 1 1.04 mg/dL (0.52-1.04); Potassium 4.8 mmol/L (3.5-5.1)
[2019-08-26] MEDS: Advair Hfa 115/21 Common canister IH SCH ×2 (07:34→18:49)
[2019-08-26] MEDS: ANTIVERT 25 MG PO SCH ×3 (10:18→20:19)
[2019-08-26] MEDS: Klor Con 10 MEQ PO SCH ×2 (10:19→20:19)
[2019-08-26] MEDS: Toprol Xl 100 MG PO SCH ×2 (10:19→20:19)
[2019-08-26] MEDS: Cymbalta 30 MG Capsule PO SCH (10:19)
[2019-08-26] MEDS: SYNTHROID 125 MCG PO SCH (10:19)
[2019-08-26] MEDS: Lanoxin 0.125MG TABLET PO SCH (10:19)
[2019-08-26] MEDS: ELIQUIS 2.5 MG TABLET PO SCH ×2 (10:19→20:19)
[2019-08-26] MEDS: Protonix 40MG Tablet PO SCH (10:19)
[2019-08-26] MEDS: MAXIPIME 1 GM** 1 G in Dextrose 5%/Water IV Soln. 100ML PLUS BAG 100 ML IV SCH ×2 (10:23→21:02)
[2019-08-26] MEDS: xanAX 0.25 MG PO PRN (12:21)
[2019-08-26] MEDS ORDERED: TROUGH DRUG LEVELS IJ ONE (19:30)
[2019-08-26] MEDS: Mirapex 0.5 MG Tablet PO PRN (20:19)
[2019-08-26] MEDS: BUSPAR 5 MG PO SCH (20:19)
--- NOTE | 2019-08-26 22:18 | PCM.NOTE ---
Date and Time: 08/26/192216 Subjective Assessment: 89 yr old female seen and examined today. She is reporting feeling about the same. She still has shortness of breath. She denies significant chest pain today. She is still anxious to go home. - Review of Systems Constitutional: No Fever Eyes: No Symptoms Ears, Nose, & Throat: No Symptoms Respiratory: Short Of Breath, No Wheezing Cardiac: No Chest Pain, No Edema, No Palpitations Abdominal/Gastrointestinal: No Abdominal Pain, No Nausea, No Vomiting, No Diarrhea, No Constipation Genitourinary Symptoms: Other (No reports of hematuria today), No Dysuria Skin: No Symptoms Neurological: No Headache Psychological: Anxiety Objective Exam General Appearance: mild distress, anxiety Neurologic Exam: alert, oriented x 3, other (Patient reports occasional memory issues), No disoriented, No confusion, No agitation Skin Exam: normal color, warm, dry, No rash Eye Exam: eyes nml inspection, No scleral icterus Ears, Nose, Throat Exam: moist mucous membranes Neck Exam: normal inspection Respiratory Exam: diminished breath sounds, other (short of breath with speaking), No wheezing Cardiovascular Exam: normal heart sounds, irregular, No regular rate/rhythm, No murmur, No friction rub, No gallop Gastrointestinal/Abdomen Exam: soft, normal bowel sounds, No tenderness, No distention Extremity Exam: normal inspection OBJECTIVE DATA Vital Signs: Vital Signs - 24 hr Temp Pulse Resp BP BP Pulse Ox 08/26/19 20:00 85 L 08/26/19 19:00 98.1 F 94 H 18 145/92 95 08/26/19 18:52 96 H 20 85 L 08/26/19 15:00 97.7 F 89 18 133/84 92 L 08/26/19 14:30 85 133/84 08/26/19 11:00 98.2 F 83 18 157/112 95 08/26/19 10:19 99 H 130/97 08/26/19 07:40 97.7 F 60 18 130/97 92 L 08/26/19 07:35 81 20 98 08/26/19 05:07 98.6 F 91 H 20 154/109 100 08/26/19 01:08 98.6 F 102 H 24 130/104 97 Pain Assessment - Last Documented Pain Intensity 10 Pain Scale Used 0-10 Pain Scale Intake and Output: Intake & Output 08/24/19 08/25/19 08/26/19 08/27/19 11:59 11:59 11:59 11:59 Intake Total 480 1090 600 240 Output Total 200 300 Balance 480 890 600 -60 Weight 59 kg Lab Results: Lab Results-Last 24 Hours 08/26/19 08/26/19 08/26/19 Range/Units 04:25 04:25 19:55 WBC 7.7 (4.0-10.5) K/mm3 RBC 3.90 L (4.1-5.4) M/mm3 Hgb 10.3 L (12.0-16.0) gm/dl Hct 34.7 L (35-47) % MCV 89.0 (78-100) fl MCH 26.4 (26-32) pg MCHC 29.7 L (32-36) g/dl RDW 21.3 H (11.5-14.0) % Plt Count 141 L (150-450) K/mm3 MPV 10.6 (7.5-11.0) fl Sodium 138 (137-145) mmol/L Potassium 4.8 (3.5-5.1) mmol/L Chloride 109 H (98-107) mmol/L Carbon Dioxide 23 (22-30) mmol/L Anion Gap 9.9 (5-15) MEQ/L BUN 28 H (7-17) mg/dL Creatinine 1.04 (0.52-1.04) mg/dL Estimated GFR 53.3 ML/MIN Glucose 108 H (74-106) mg/dL Calcium 8.5 (8.4-10.2) mg/dL Vancomycin Trough 9.91 L (10-20) ug/mL Multi-Disciplinary Progress Notes: Multi-Disciplinary Progress Notes 08/26/19 15:53 Case Management Note by Yaneth Kuo REVIEWED DISCHARGE PLAN, CONTINUES TO PLAN TO RETURN HOME WITH [facility]. DENIES ADDNL NEEDS. WILL FOLLOW FOR ALL DC NEEDS. Initialized on 08/26/19 15:53 - END OF NOTE Assessment/Plan (1) Atrial fibrillation with rapid ventricular response Status: Acute Assessment & Plan: Patient rate continues to be around 100 with some elevations to 107-117. Will continue to monitor on her current regimen. Will get cardiology consult since the afib isnt rate controlled. Code(s): I48.91 - UNSPECIFIED ATRIAL FIBRILLATION (2) Anemia Status: Acute Qualifiers: Anemia type: iron deficiency Iron deficiency anemia type: unspecified iron deficiency Qualified Code(s): D50.9 - Iron deficiency anemia, unspecified Assessment & Plan: Likely from blood loss related to recent hematuria. Patient had reported to nurse this is known issue. Will have patient follow up with urologist to follow up on painless hematuria. Code(s): D64.9 - ANEMIA, UNSPECIFIED (3) Shortness of breath Status: Acute Assessment & Plan: Patient continues to be short of breath which is likely multifactorial. Will continue to treat afib. Will have patient follow up with urology for anemia. Will evaluate for CHF exacerbation. Will continue monitoring for copd exacerbation Code(s): R06.02 - SHORTNESS OF BREATH (4) COPD (chronic obstructive pulmonary disease) Status: Chronic Qualifiers: COPD type: chronic bronchitis Chronic bronchitis type: simple Qualified Code(s): J41.0 - Simple chronic bronchitis (5) HTN (hypertension) Status: Chronic Qualifiers: Hypertension type: essential hypertension Qualified Code(s): I10 - Essential (primary) hypertension Assessment & Plan: Patient has had elevated bp not responding to her routine meds. Her toprolol was increased and her bp still did not respond. Will have cardiology comanage her HTN as well. Code(s): I10 - ESSENTIAL (PRIMARY) HYPERTENSION (6) Hematuria Status: Acute Assessment & Plan: Patient had a few episodes of hematuria which has since resolved. Patient will follow up with urologist. Code(s): R31.9 - HEMATURIA, UNSPECIFIED
[2019-08-26] MEDS ORDERED: Toprol Xl 50 MG PO ONE ×2 (22:24→22:36)
[2019-08-27 04:52] LABS: Hematocrit 34.3 % (35-47); Hemoglobin 10.2 gm/dl (12.0-16.0); Mean Cell Volume 89.1 fl (78-100); Mean Corpuscular Hemoglobin 26.5 pg (26-32); Mean Corpuscular Hgb Concent. 29.7 g/dl (32-36); Mean Platelet Volume 10.9 fl (7.5-11.0); Platelet Count 134 K/mm3 (150-450); Red Blood Count 3.85 M/mm3 (4.1-5.4); White Blood Count 7.8 K/mm3 (4.0-10.5)
[2019-08-27 05:24] LABS: ANION GAP 9.7 MEQ/L (5-15); Calcium 8.8 mg/dL (8.4-10.2); Creatinine 1 1.04 mg/dL (0.52-1.04); Potassium 4.7 mmol/L (3.5-5.1)
[2019-08-27] MEDS: Advair Hfa 115/21 Common canister IH SCH ×2 (06:48→19:31)
[2019-08-27] MEDS: NORCO 5/325 MG PO PRN (09:20)
[2019-08-27] MEDS: Toprol Xl 50 MG PO SCH ×2 (09:21→22:03)
[2019-08-27] MEDS: SYNTHROID 125 MCG PO SCH (09:21)
[2019-08-27] MEDS: Lanoxin 0.125MG TABLET PO SCH (09:21)
[2019-08-27] MEDS: Klor Con 10 MEQ PO SCH ×2 (09:21→22:03)
[2019-08-27] MEDS: ANTIVERT 25 MG PO SCH ×3 (09:21→22:02)
[2019-08-27] MEDS: ELIQUIS 2.5 MG TABLET PO SCH ×2 (09:21→22:03)
[2019-08-27] MEDS: Protonix 40MG Tablet PO SCH (09:21)
[2019-08-27] MEDS: Cymbalta 30 MG Capsule PO SCH (09:21)
[2019-08-27] MEDS: VANCOCIN 500 MG VIAL*** 500 MG in Sodium Chloride 100ML MINI-BAG PLUS 100 ML IV SCH ×3 (09:26→20:51)
[2019-08-27] MEDS: MAXIPIME 1 GM** 1 G in Dextrose 5%/Water IV Soln. 100ML PLUS BAG 100 ML IV SCH ×3 (09:26→21:02)
[2019-08-27] MEDS ORDERED: VANCOMYCIN 1 GRAM/200 ML BAG 1 GM/200 ML PIGGYBACK IV SCH (14:00)
--- NOTE | 2019-08-27 20:07 | PCM.NOTE ---
Date and Time: 08/27/191927 Subjective Assessment: 89 yr old female seen and examined today. Patient is doing well. She is anxious to go home. She reports that she at times will have some chest pains. She does also reports getting short of breath as well. She reports that she doesnt eat much routinely. No other reported concerns. - Review of Systems Constitutional: No Symptoms Eyes: No Symptoms Ears, Nose, & Throat: No Symptoms Respiratory: Short Of Breath Cardiac: Chest Pain, No Edema Abdominal/Gastrointestinal: No Symptoms Genitourinary Symptoms: No Symptoms Musculoskeletal: Other (chronic pain ) Skin: No Symptoms Neurological: No Headache Psychological: Anxiety Objective Exam General Appearance: mild distress Neurologic Exam: alert, cooperative, normal mood/affect, confusion (pleasantly c onfused at times and has had to be redireced at times) Skin Exam: normal color, warm, dry, No rash Eye Exam: eyes nml inspection, No scleral icterus, No pale conjunctivae Ears, Nose, Throat Exam: moist mucous membranes Neck Exam: No normal inspection Respiratory Exam: lungs clear, diminished breath sounds, No chest tenderness, No wheezing Cardiovascular Exam: irregular, No murmur, No friction rub, No gallop Gastrointestinal/Abdomen Exam: soft, normal bowel sounds, No tenderness, No distention Extremity Exam: normal inspection, No pedal edema, No swelling, No tenderness OBJECTIVE DATA Vital Signs: Vital Signs - 24 hr Temp Pulse Resp BP Pulse Ox 08/27/19 15:00 98.1 F 105 H 18 143/104 98 08/27/19 11:00 98.1 F 105 H 18 146/104 98 08/27/19 09:21 112 H 08/27/19 07:00 98.3 F 65 30 H 160/103 94 L 08/27/19 06:50 89 20 94 L 08/27/19 03:30 98.6 F 86 26 H 153/99 92 L 08/26/19 23:00 98.5 F 99 H 24 147/90 95 08/26/19 20:00 85 L Pain Assessment - Last Documented Pain Intensity 2 Pain Scale Used 0-10 Pain Scale Intake and Output: Intake & Output 08/25/19 08/26/19 08/27/19 08/28/19 11:59 11:59 11:59 11:59 Intake Total 1090 600 600 480 Output Total 200 300 Balance 890 600 300 480 Weight 59 kg Lab Results: Lab Results-Last 24 Hours 08/26/19 08/27/19 08/27/19 Range/Units 19:55 04:25 04:25 WBC 7.8 (4.0-10.5) K/mm3 RBC 3.85 L (4.1-5.4) M/mm3 Hgb 10.2 L (12.0-16.0) gm/dl Hct 34.3 L (35-47) % MCV 89.1 (78-100) fl MCH 26.5 (26-32) pg MCHC 29.7 L (32-36) g/dl RDW 21.0 H (11.5-14.0) % Plt Count 134 L (150-450) K/mm3 MPV 10.9 (7.5-11.0) fl Sodium 138 (137-145) mmol/L Potassium 4.7 (3.5-5.1) mmol/L Chloride 110 H (98-107) mmol/L Carbon Dioxide 23 (22-30) mmol/L Anion Gap 9.7 (5-15) MEQ/L BUN 27 H (7-17) mg/dL Creatinine 1.04 (0.52-1.04) mg/dL Estimated GFR 53.3 ML/MIN Glucose 109 H (74-106) mg/dL Calcium 8.8 (8.4-10.2) mg/dL Vancomycin Trough 9.91 L (10-20) ug/mL Multi-Disciplinary Progress Notes: Multi-Disciplinary Progress Notes 08/27/19 10:21 Case Management Note by Maty Padilla PATIENT REPORTS SHE LIVES IN THE [facility] AND HER SON LIVES THERE WELL AND CHECKS ON HER FREQUENTLY. PATIENT HAS HOME HEALTHCARE ALREADY. PATIENT PLANS TO DC HOME WITH HOME HEALTHCARE AT TIME OF DC. Initialized on 08/27/19 10:21 - END OF NOTE 08/27/19 08:50 Pharmacy Note by Jerry Chung Vancomycin trough low at 9.91. Will change interval to q12h to improve level. Initialized on 08/27/19 08:50 - END OF NOTE Assessment/Plan (1) Atrial fibrillation with rapid ventricular response Current Visit: No Status: Acute Assessment & Plan: Patient was started on digoxin and metoporolol for a fib with RVR which started to improve. She still had rates near 120 at times. Her rate improved to and was closer to high 90s low 100s. Patient did have some higher blood pressures and toprolol was increased from 100 BID to 150 BID. Her pulse has still stayed in the high 90s low 100s. She will continue to be monitored on tele and cardiology has been consulted. Echo ordered for am Code(s): I48.91 - UNSPECIFIED ATRIAL FIBRILLATION (2) Anemia Current Visit: Yes Status: Acute Qualifiers: Anemia type: iron deficiency Iron deficiency anemia type: unspecified iron deficiency Qualified Code(s): D50.9 - Iron deficiency anemia, unspecified Assessment & Plan: Patient was having some hematuria reported by patient and nurse. She reports this is a known issue and she sees a urologists for this. She required blood products this admission. Will need to have patient follow up with urology Code(s): D64.9 - ANEMIA, UNSPECIFIED (3) Chronic pain Current Visit: No Status: Acute Assessment & Plan: Patient sees Dr Villegas for her chronic pain. I spoke to him about the patient's current hospital admission as patient was ready to leave hospital AMA because she did not want to miss her pain management appt. He was agreeable to send in script for patient for one of her pain medications and stated that I could write a 7 days supply of norco for patient until she could be seen by him and continue with her pain management contract. Code(s): G89.29 - OTHER CHRONIC PAIN (4) HTN (hypertension) Current Visit: No Status: Chronic Qualifiers: Hypertension type: essential hypertension Qualified Code(s): I10 - Essential (primary) hypertension Assessment & Plan: Patient continues to have HTN even with increased metoprolol. Unsure if patient's bp has been uncontrolled on her previous routine bp meds. I have consulted cardiology to help with bp management. Echo ordered for am Code(s): I10 - ESSENTIAL (PRIMARY) HYPERTENSION (5) Shortness of breath Current Visit: Yes Status: Acute Assessment & Plan: Multifactorial, patient is anemic, has afib hx of copd and chf. Will get cxr and echo to eval for causes of SOB Code(s): R06.02 - SHORTNESS OF BREATH
[2019-08-27] MEDS: BUSPAR 5 MG PO SCH (22:02)
[2019-08-28 05:25] LABS: Hematocrit 33.9 % (35-47); Hemoglobin 10.3 gm/dl (12.0-16.0); Mean Corpuscular Hgb Concent. 30.4 g/dl (32-36); Mean Platelet Volume 11.7 fl (7.5-11.0); Platelet Count 153 K/mm3 (150-450); Red Blood Count 3.81 M/mm3 (4.1-5.4); Red Cell Distribution Width 21.3 % (11.5-14.0); White Blood Count 7.9 K/mm3 (4.0-10.5)
[2019-08-28 05:36] LABS: ANION GAP 10.8 MEQ/L (5-15); Creatinine 1 1.01 mg/dL (0.52-1.04); Potassium 4.7 mmol/L (3.5-5.1)
[2019-08-28] MEDS: Advair Hfa 115/21 Common canister IH SCH ×2 (06:45→20:00)
--- NOTE | 2019-08-28 08:43 | XRAY ---
Indication: Cough and congestion. COPD. Comparison: July 04, 2019. PA/lateral chest again hyperinflated with new cardiomegaly, mild pulmonary edema, and small bibasilar effusions favoring cardiac decompensation. Left costophrenic angle nodule continues to enlarge at least 2.4 cm today. Stable tortuous descending aorta, osteopenia, bony degenerative changes, dextroscoliosis, and L1 kyphoplasty. Impression: 1. New cardiomegaly, pulmonary edema, and bibasilar effusions favoring cardiac decompensation. Superimposed pneumonia not completely excluded. 2. Continued enlarging left costophrenic angle nodule. CT chest may yield further information.
[2019-08-28] MEDS: Lanoxin 0.125MG TABLET PO SCH (09:09)
[2019-08-28] MEDS: Cymbalta 30 MG Capsule PO SCH (09:11)
[2019-08-28] MEDS: Toprol Xl 50 MG PO SCH (09:12)
[2019-08-28] MEDS: ELIQUIS 2.5 MG TABLET PO SCH ×2 (09:12→21:16)
[2019-08-28] MEDS: Klor Con 10 MEQ PO SCH ×2 (09:12→21:16)
[2019-08-28] MEDS: SYNTHROID 125 MCG PO SCH (09:12)
[2019-08-28] MEDS: Protonix 40MG Tablet PO SCH (09:13)
[2019-08-28] MEDS: NORCO 5/325 MG PO PRN ×2 (09:15→21:17)
[2019-08-28] MEDS: VANCOCIN 500 MG VIAL*** 500 MG in Sodium Chloride 100ML MINI-BAG PLUS 100 ML IV SCH ×2 (09:17→21:18)
[2019-08-28] MEDS: MAXIPIME 1 GM** 1 G in Dextrose 5%/Water IV Soln. 100ML PLUS BAG 100 ML IV SCH ×2 (09:17→21:25)
[2019-08-28] MEDS: ANTIVERT 25 MG PO SCH ×3 (10:28→21:17)
--- NOTE | 2019-08-28 12:15 | ECHO ---
Transthoracic echocardiographic examination and color Doppler was done on 08/28/2019. INDICATION: Atrial fibrillation, palpitations. IMPRESSION: 1) MILD LEFT VENTRICULAR HYPOKINESIA. EJECTION FRACTION OF AROUND 40 TO 45%. 2) MODERATE MITRAL REGURGITATION. 3) MODERATE TO SEVERE TRICUSPID REGURGITATION. RIGHT VENTRICULAR SYSTOLIC PRESSURE OF 52 MM OF MERCURY. 4) TRACE AORTIC REGURGITATION. 5) MODERATE ENLARGED LEFT ATRIUM. 6) MILDLY DILATED RIGHT ATRUIUM. The left ventricle is visualized and demonstrated mild left ventricular hypokinesia. The ejection fraction between 40 to 45%. There is borderline left ventricular hypertrophy. The mitral valve is seen and this opens adequately. There is moderate mitral regurgitation. Left atrium is moderately enlarged. The aortic valve is sclerotic. There is no significant gradient across the left ventricular outflow tract. There is trace aortic regurgitation. The right side chambers are mildly dilated. There is moderate to severe tricuspid regurgitation with the right ventricular systolic pressure of 52 mm of Mercury suggestive of a moderate pulmonary hypertension.
--- NOTE | 2019-08-28 12:42 | CONS ---
CONSULT DATE: 08/28/2019 HISTORY: This is an 89 year old female who was seen because of atrial fibrillation associated with tachycardia and shortness of breath. She has been having intermittent shortness of breath with activity for the last three weeks. She was also noted to have episodes of tachycardia with underlying atrial fibrillation. She is currently on high dose of beta blockers with a combination of digoxin. She currently denies any chest pain but she has limited exercise capacity. She has had previous cardiac catheterization which showed mild disease. CARDIAC RISK FACTORS: Negative for diabetes. Positive for hypertension. She has history of smoking. No known hyperlipidemia. FAMILY HISTORY: Negative for premature coronary artery disease. CURRENT MEDICATIONS: Apixaban 2.5 mg twice a day, BuSpar, digoxin, Cymbalta, Advair, levothyroxine, meclizine, metoprolol, Protonix, potassium. REVIEW OF SYSTEMS: COOKER SULFITE: No prior history of stroke. No seizures. RESPIRATORY: She has history of bronchitis in the past. GI: No history of peptic ulcer or colon disorder. : She has history of urinary tract infection. PERIPHERAL VASCULAR: History of DVT or claudication. MUSCULOSKELETAL: She has degenerative joint disorder. PAST SURGICAL HISTORY: Breast biopsy, back surgery, hysterectomy, cataract surgery. SOCIAL HISTORY: She used to work at [employer]. She has no significant alcohol intake. PHYSICAL EXAMINATION: VITAL SIGNS: Blood pressure 155/96 with heart rate of 104 in atrial fibrillation, respirations about 20. GENERAL: The patient is an elderly female who is awake, somewhat hard of hearing. Shortness of breath with mild exertion. HEENT: Slightly pale conjunctivae. NECK: No JVD. CHEST: The breath sounds are harsh but no rhonchi. CARDIAC: Heart tones are variable. The rhythm is atrial fibrillation. There is no audible gallop. There is a grade 2/6 systolic murmur that is maximum at the apex. ABDOMEN: Soft with normal bowel sounds. EXTREMITIES: No significant edema. LAB DATA AND DIAGNOSTIC TESTS: The electrocardiogram showed atrial fibrillation. IMPRESSION: 1) Atrial fibrillation which appears to be permanent, goal of treatment will be heart rate control and continuation of anticoagulation. I would decrease the beta vicky to 100 twice a day and increase the digoxin to 125 mcg a day. TSH is normal. Will obtain a D-dimer to rule out embolic event. 2) Moderate mitral regurgitation and moderate to severe tricuspid regurgitation. There is mild to moderate pulmonary hypertension. I will continue to treat conservatively with ARB or HENRIETTA inhibitors which will also control her blood pressure. 3) Elevated BNP: This may be secondary to pulmonary hypertension related to her chronic obstructive pulmonary disease. I will follow up with you.
[2019-08-28] MEDS ORDERED: Lasix 20 MG/2 ML IV SCH (13:00)
[2019-08-28] MEDS ORDERED: Lasix 40 MG PO ONE (14:48)
--- NOTE | 2019-08-28 15:14 | XRAY ---
Indication: Elevated d-dimer. Two-dimensional sonogram and color Doppler imaging of the major venous vessels of the left and right leg was performed. Comparison: None No thrombus seen in the examined deep venous vessels of the left and right leg including greater saphenous vein. Veins demonstrate normal compressibility. Venous waveforms are normal with and without augmentation. Impression: Left and right legs negative for DVT.
--- NOTE | 2019-08-28 20:09 | PCM.NOTE ---
Date and Time: 08/28/192003 Subjective Assessment: 89 yr old seen and examined today. Patient reports that she is doing ok. She reports that her shortness of breath has improved slightly. She is anxious to go home. She reports that she still does not eat much. No reported cough. No reported edema. - Review of Systems Constitutional: No Symptoms Eyes: No Symptoms Ears, Nose, & Throat: No Symptoms Respiratory: Short Of Breath, No Cough, No Wheezing Cardiac: No Chest Pain, No Edema, No Palpitations Abdominal/Gastrointestinal: No Symptoms Genitourinary Symptoms: Hematuria Musculoskeletal: No Symptoms Skin: No Cellulitis Neurological: No Headache Psychological: No Anxiety Objective Exam General Appearance: mild distress, anxiety Neurologic Exam: alert, cooperative, confusion Skin Exam: normal color, warm, dry, No rash Eye Exam: eyes nml inspection, No scleral icterus, No pale conjunctivae Ears, Nose, Throat Exam: moist mucous membranes Neck Exam: normal inspection Respiratory Exam: diminished breath sounds, No chest tenderness, No lungs clear, No respiratory distress, No wheezing Cardiovascular Exam: irregular, No murmur, No friction rub, No gallop Gastrointestinal/Abdomen Exam: soft, normal bowel sounds, No tenderness, No distention Extremity Exam: normal inspection, No pedal edema, No swelling, No tenderness OBJECTIVE DATA Vital Signs: Vital Signs - 24 hr Temp Pulse Resp BP BP Pulse Ox 08/28/19 19:31 98.3 F 103 H 18 150/83 96 08/28/19 17:00 98.1 F 84 22 150/109 93 L 08/28/19 13:34 98.4 F 104 H 19 175/99 94 L 08/28/19 12:00 98.5 F 91 H 18 164/90 94 L 08/28/19 09:09 91 H 163/113 08/28/19 07:46 164/90 08/28/19 07:36 98.5 F 75 18 167/102 94 L 08/28/19 06:46 72 18 94 L 08/28/19 04:00 98.5 F 104 H 22 155/96 93 L 08/27/19 23:30 97.8 F 70 20 138/97 97 Pain Assessment - Last Documented Pain Intensity 4 Pain Scale Used 0-10 Pain Scale Intake and Output: Intake & Output 08/26/19 08/27/19 08/28/19 08/29/19 11:59 11:59 11:59 11:59 Intake Total 600 600 930 360 Output Total 300 300 Balance 600 300 930 60 Weight 59 kg Lab Results: Lab Results-Last 24 Hours 08/28/19 08/28/19 08/28/19 Range/Units 04:20 04:20 05:00 WBC 7.9 (4.0-10.5) K/mm3 RBC 3.81 L (4.1-5.4) M/mm3 Hgb 10.3 L (12.0-16.0) gm/dl Hct 33.9 L (35-47) % MCV 89.0 (78-100) fl MCH 27.0 (26-32) pg MCHC 30.4 L (32-36) g/dl RDW 21.3 H (11.5-14.0) % Plt Count 153 (150-450) K/mm3 MPV 11.7 H (7.5-11.0) fl D-Dimer (215-500) ng/mL Sodium 140 (137-145) mmol/L Potassium 4.7 (3.5-5.1) mmol/L Chloride 111 H (98-107) mmol/L Carbon Dioxide 23 (22-30) mmol/L Anion Gap 10.8 (5-15) MEQ/L BUN 24 H (7-17) mg/dL Creatinine 1.01 (0.52-1.04) mg/dL Estimated GFR 55.1 ML/MIN Glucose 105 (74-106) mg/dL Calcium 9.0 (8.4-10.2) mg/dL NT-Pro-B Natriuret Pep 16781 H (0-1800) pg/mL 08/28/19 Range/Units 05:00 WBC (4.0-10.5) K/mm3 RBC (4.1-5.4) M/mm3 Hgb (12.0-16.0) gm/dl Hct (35-47) % MCV (78-100) fl MCH (26-32) pg MCHC (32-36) g/dl RDW (11.5-14.0) % Plt Count (150-450) K/mm3 MPV (7.5-11.0) fl D-Dimer 798 H* (215-500) ng/mL Sodium (137-145) mmol/L Potassium (3.5-5.1) mmol/L Chloride (98-107) mmol/L Carbon Dioxide (22-30) mmol/L Anion Gap (5-15) MEQ/L BUN (7-17) mg/dL Creatinine (0.52-1.04) mg/dL Estimated GFR ML/MIN Glucose (74-106) mg/dL Calcium (8.4-10.2) mg/dL NT-Pro-B Natriuret Pep (0-1800) pg/mL Radiology Exams: Radiology Procedures Category Date Time Status CHEST 2 VIEWS (PA AND LAT) Routine Exams 08/28/19 08:00 Completed ECHO W/2D AND DOPPLER [US] Routine Exams 08/28/19 09:00 Draft VENOUS BILATERAL EXTREMITY [US] Urgent Exams 08/28/19 15:07 Completed Multi-Disciplinary Progress Notes: Multi-Disciplinary Progress Notes 08/28/19 10:54 Case Management Note by Maty Padilla S/W DR. HONG REGARDING INTERMITTENT CONFUSION. SHE FEELS THIS IS LIKELY SITUATIONAL SINCE PATIENT RECOVERS FROM THE EPISODES ON HER OWN AND IS AWARE OF HER DEMENTIA DIAGNOSIS. PATIENT LIVES IN THE [facility] AND HER GRANDSON LIVES THERE WELL IN HIS OWN APARTMENT. PER DR. RIVERA ORDER- ORDER SENT TO [facility] TO INCREASE HOME HEALTHCARE VISITS TO HELP MONITOR PATIENT. I ALSO S/W PATIENT'S GRANDSON AND POA- HE AND HIS FATHER HAVE ALSO NOTICED AN INCREASE IN PATIENT'S DEMENTIA BUT STATES SHE STILL FUNCTIONS FAIRLY WELL AT HOME AND HAS NOT BEEN UNSAFE AT HOME. HE IS AWARE THAT PATIENT MAY NEED NURSING FACILITY IN THE NEAR FUTURE BUT DOES NOT FEEL IT IS NEEDED AT THIS TIME. HE WILL CONTINUE TO CHECK ON PATIENT FREQUENTLY WHEN PATIENT RETURNS HOME Initialized on 08/28/19 10:54 - END OF NOTE Assessment/Plan (1) Atrial fibrillation with rapid ventricular response Current Visit: No Status: Acute Assessment & Plan: Patient still has irregular HR. Dr Ruiz saw patient today and made modifications of her dig and diltiazem. She had a repeat echo and no reported mural thrombus. She is on toprolol. Will continue to monitor on tele. Possible DC tomorrow if patient is stable. Code(s): I48.91 - UNSPECIFIED ATRIAL FIBRILLATION (2) Anemia Current Visit: Yes Status: Acute Qualifiers: Anemia type: iron deficiency Iron deficiency anemia type: unspecified iron deficiency Qualified Code(s): D50.9 - Iron deficiency anemia, unspecified Assessment & Plan: Patient has some reported hematuria. Her hbg has stayed stable while in hospital. Will get patient referred to urology to evaluate for cause of hematuria and tx if possible. Code(s): D64.9 - ANEMIA, UNSPECIFIED (3) Shortness of breath Current Visit: Yes Status: Acute Assessment & Plan: Patient had bnp that was elevated echo showed enlarged heart. Will start on lasix with potassium supplementation. Will plan for DC tomorrow. Code(s): R06.02 - SHORTNESS OF BREATH (4) HTN (hypertension) Current Visit: No Status: Chronic Qualifiers: Hypertension type: essential hypertension Qualified Code(s): I10 - Essential (primary) hypertension Assessment & Plan: Patient continues to have bp spikes she does not appear to have symptoms at the time. Will continue to monitor bp and Dr Ruiz was consulted to help comanage. Code(s): I10 - ESSENTIAL (PRIMARY) HYPERTENSION
[2019-08-28] MEDS: Mirapex 0.5 MG Tablet PO PRN (21:16)
[2019-08-28] MEDS: Toprol Xl 100 MG PO SCH (21:16)
[2019-08-28] MEDS: BUSPAR 5 MG PO SCH (21:17)
[2019-08-28] MEDS: xanAX 0.25 MG PO PRN (21:17)
[2019-08-29 04:45] LABS: Hematocrit 33.9 % (35-47); Hemoglobin 10.2 gm/dl (12.0-16.0); Mean Cell Volume 88.7 fl (78-100); Mean Corpuscular Hemoglobin 26.7 pg (26-32); Mean Corpuscular Hgb Concent. 30.1 g/dl (32-36); Platelet Count 146 K/mm3 (150-450); Red Blood Count 3.82 M/mm3 (4.1-5.4); Red Cell Distribution Width 21.3 % (11.5-14.0)
[2019-08-29 05:05] LABS: ANION GAP 9.7 MEQ/L (5-15); Calcium 8.9 mg/dL (8.4-10.2); Creatinine 1 1.01 mg/dL (0.52-1.04); Potassium 4.1 mmol/L (3.5-5.1)
[2019-08-29] MEDS: Cymbalta 30 MG Capsule PO SCH (09:10)
[2019-08-29] MEDS: Toprol Xl 100 MG PO SCH (09:10)
[2019-08-29] MEDS: SYNTHROID 125 MCG PO SCH (09:12)
[2019-08-29] MEDS: Protonix 40MG Tablet PO SCH (09:12)
[2019-08-29] MEDS: ELIQUIS 2.5 MG TABLET PO SCH (09:12)
[2019-08-29] MEDS: MAXIPIME 1 GM** 1 G in Dextrose 5%/Water IV Soln. 100ML PLUS BAG 100 ML IV SCH (09:12)
[2019-08-29] MEDS: ANTIVERT 25 MG PO SCH (09:12)
[2019-08-29] MEDS: Klor Con 10 MEQ PO SCH (09:12)
[2019-08-29] MEDS: Advair Hfa 115/21 Common canister IH SCH (09:20)
[2019-08-29] MEDS ORDERED: Lanoxin 0.125MG TABLET PO SCH (10:00)
[2019-08-29] MEDS: VANCOCIN 500 MG VIAL*** 500 MG in Sodium Chloride 100ML MINI-BAG PLUS 100 ML IV SCH (10:05)
--- NOTE | 2019-08-29 11:23 | PCM.DS ---
Discharge Summary Date of Admission: 08/23/19 16:02 Date of Discharge: 08/29/2019 Admitting Physician: HARVEY CARMONA Consults: Consults on Case 08/27/19 10:11 Consult Cardiology ROUTINE Primary Care Provider: [facility] Allergies Allergies nitrofurantoin [From Macrobid] Allergy (Severe, Verified 12/25/17 08:46) nitrofurantoin macrocrystalline [From Macrobid] Allergy (Severe, Verified 12/25/17 08:46) morphine Allergy (Unknown, Verified 12/25/17 08:46) penicillin G Allergy (Unknown, Verified 12/25/17 08:46) Sulfa (Sulfonamide Antibiotics) [Sulfa(Sulfonamide Antibiotics)] Allergy (Unknown, Verified 12/25/17 08:46) Hospital Summary - Hospital Course Hospital Course: 89 yr old female was directly admitted from office for afib with RVR. Patient was on started on two rate controlling medications. Patient continued to have rates that would jump to 107-117. Patient was short of breath and was not improving. She also started to have elevated bp as well. Patient had one or two episodes of hematuria. She reported to the nurse that she sees a specialist for this. Due to persistent shortness of breath and continuing afib and worsening HTN even additional beta vicky Cardiology was consulted. BNP and echo were ordered. Cardiology ordered d-dimer and some additional studies. BNP was elevated and echo showed worsening chf. Patient was given lasix and started to have symptom improvement. Her rate was better improved and bp started to correct. Patient reported less shortness of breath. Patient was stable enough for discharge. She will need to follow up with urology, cardiology and pcp. - Vitals & Intake/Output Vital Signs: Vital Signs Temperature 98.1 F 08/29/19 08:00 Pulse Rate 81 08/29/19 09:20 Respiratory Rate 18 08/29/19 09:20 Blood Pressure 129/92 08/29/19 09:10 O2 Sat by Pulse Oximetry 96 08/29/19 09:22 Intake & Output: Intake & Output 08/26/19 08/27/19 08/28/19 08/29/19 11:59 11:59 11:59 11:59 Intake Total 600 600 930 820 Output Total 300 1600 Balance 600 300 930 -780 Weight 59 kg - Lab Result Diagrams: 08/29/19 04:20 08/29/19 04:20 Lab Results-Last 24 Hrs: Lab Results-Last 24 Hours 08/28/19 08/28/19 08/29/19 Range/Units 05:00 05:00 04:20 WBC 8.0 (4.0-10.5) K/mm3 RBC 3.82 L (4.1-5.4) M/mm3 Hgb 10.2 L (12.0-16.0) gm/dl Hct 33.9 L (35-47) % MCV 88.7 (78-100) fl MCH 26.7 (26-32) pg MCHC 30.1 L (32-36) g/dl RDW 21.3 H (11.5-14.0) % Plt Count 146 L (150-450) K/mm3 MPV 11.0 (7.5-11.0) fl D-Dimer 798 H* (215-500) ng/mL Sodium (137-145) mmol/L Potassium (3.5-5.1) mmol/L Chloride (98-107) mmol/L Carbon Dioxide (22-30) mmol/L Anion Gap (5-15) MEQ/L BUN (7-17) mg/dL Creatinine (0.52-1.04) mg/dL Estimated GFR ML/MIN Glucose (74-106) mg/dL Calcium (8.4-10.2) mg/dL NT-Pro-B Natriuret Pep 39621 H (0-1800) pg/mL 08/29/19 08/29/19 Range/Units 04:20 05:00 WBC (4.0-10.5) K/mm3 RBC (4.1-5.4) M/mm3 Hgb (12.0-16.0) gm/dl Hct (35-47) % MCV (78-100) fl MCH (26-32) pg MCHC (32-36) g/dl RDW (11.5-14.0) % Plt Count (150-450) K/mm3 MPV (7.5-11.0) fl D-Dimer (215-500) ng/mL Sodium 139 (137-145) mmol/L Potassium 4.1 (3.5-5.1) mmol/L Chloride 106 (98-107) mmol/L Carbon Dioxide 27 (22-30) mmol/L Anion Gap 9.7 (5-15) MEQ/L BUN 23 H (7-17) mg/dL Creatinine 1.01 (0.52-1.04) mg/dL Estimated GFR 55.1 ML/MIN Glucose 98 (74-106) mg/dL Calcium 8.9 (8.4-10.2) mg/dL NT-Pro-B Natriuret Pep 00672 H (0-1800) pg/mL Micro Results-Entire Visit: Microbiology 08/22/19 Unknown Urine Culture - Final Urine, Void Pseudomonas Aeruginosa Enterococcus Faecium - Radiology Exams Ordered Rad Exams-Entire Visit: Radiology Procedures Category Date Time Status CHEST 2 VIEWS (PA AND LAT) Routine Exams 08/28/19 08:00 Completed ECHO W/2D AND DOPPLER [US] Routine Exams 08/28/19 09:00 Draft VENOUS BILATERAL EXTREMITY [US] Urgent Exams 08/28/19 15:07 Completed - Procedures and Test Procedures and Tests throughout Hospitalization: Therapy Orders & Screens 08/22/19 15:16 EKG ROUTINE Comment: Diagnosis: AFIB W/ RVR 08/22/19 16:02 Respiratory Therapy Assessment DAILY Comment: Diagnosis: AFIB W/ RVR 08/23/19 07:37 Oxygen NASAL CANNULA 2 lpm Comment: Diagnosis: AFIB W/ RVR Discharge Exam Neurologic Exam: alert, oriented x 3, cooperative, normal mood/affect, other (Patient has some self reported memory issues and some of the staff reported having to redirect patient.) Eye Exam: eyes nml inspection Ears, Nose, Throat Exam: moist mucous membranes Neck Exam: JVD (mild) Respiratory Exam: diminished breath sounds, No chest tenderness, No respiratory distress, No crackles/rales, No wheezing Cardiovascular Exam: irregular, No murmur, No friction rub, No gallop Gastrointestinal/Abdomen Exam: soft, normal bowel sounds, No tenderness Pelvic Exam: deferred Rectal Exam: deferred Back Exam: normal inspection Extremity Exam: normal inspection, No pedal edema, No swelling Skin Exam: normal color, warm, dry, No rash Final Diagnosis/Problem List - Final Discharge Diagnosis/Problem (1) Atrial fibrillation with rapid ventricular response Status: Acute Assessment & Plan: Patient did not initially respond to rate controlling medication. She did get lasix which appeared to improve her symptoms. She will continue on the digoxin and toprol that she was on while in the hospital at the dose recommended by cardiology. She will follow up with Dr Ruiz as an outpatient. Code(s): I48.91 - UNSPECIFIED ATRIAL FIBRILLATION (2) Anemia Status: Acute Assessment & Plan: Patient had some reported hematuria which likely led to her anemia. She will follow up with urology for her nicolette hematuria. Will continue follow up as outpatient Code(s): D64.9 - ANEMIA, UNSPECIFIED (3) Shortness of breath Status: Acute Assessment & Plan: Patient was likely fluid overloaded. She did not have a lot of edema on physical exam but was in bed quite a bit. She received lasix and her symptoms started to improve. Her shortness of breath was multifactorial including afib with RVR, anemia, chf and copd Code(s): R06.02 - SHORTNESS OF BREATH (4) HTN (hypertension) Status: Chronic Assessment & Plan: Finally improved once patient diuresed. Will follow recs from cardiology about home HTN meds and dosage changes that were made. Code(s): I10 - ESSENTIAL (PRIMARY) HYPERTENSION (5) CHF (congestive heart failure) Status: Acute Assessment & Plan: likely diastolic. Patient was given lasix with potassium repletion. She was discharged on a short course of these medications. She will need repeat labs prior to follow up visit to make any adjustments if necessary Code(s): I50.9 - HEART FAILURE, UNSPECIFIED (6) Hematuria Status: Acute Code(s): R31.9 - HEMATURIA, UNSPECIFIED (7) COPD (chronic obstructive pulmonary disease) Status: Chronic Assessment & Plan: Patient had diminished breath sounds. Continue her routine meds as patient was not wheezing. - Discharge Disposition: Home, Self-Care Condition: Stable Prescriptions: New Furosemide [Lasix] 40 mg PO DAILY 5 Days #5 tablet Metoprolol Succinate 100 mg [Toprol Xl 100 MG] 100 mg PO BID 30 Days #60 tablet.sa Hydrocodone/APAP 5-325 Tab^^^ [[place] 5-325 Tablet^^^] 1 each PO TID 7 Days #21 tablet MDD 3 Continue Omeprazole 20 MG [Prilosec 20 mg] 40 mg PO DAILY Multivitamin [Multi-Vitamin Daily] 1 each PO DAILY Hydrocodone Bit/Acetaminophen [[place] 5-325 Tablet] 1 tab PO TIDPRN PRN PRN Reason: Pain Potassium Chloride 20 Meq [Klor-Con 20 MEQ] 20 meq BID Buspirone HCl [Buspar] 5 mg PO HS Alprazolam 0.25 mg [xanAX 0.25 MG] 0.25 mg PO BID PRN PRN PRN Reason: Anxiety Alendronate Sodium 70 mg PO WEEKLY Buprenorphine HCl [Belbuca] 300 mcg BC Q12H Apixaban [Eliquis] 2.5 mg PO BID Cyproheptadine HCl 8 mg PO HS Fluticasone/Salmeterol Disc [Advair 250-50 Diskus 14 Dose] 1 puff IH BID Duloxetine HCl 60 mg PO DAILY Meclizine HCl 25 mg PO TID Diclofenac Sodium Gel [Voltaren GEL] 2 g TOP TID PRN PRN PRN Reason: Pain Levothyroxine Sodium 125 mcg PO DAILY Pramipexole Di-HCl 0.5 mg [Mirapex 0.5 MG Tablet] 0.125 mg PO HS PRN #30 tab PRN Reason: restless leg Docusate Sodium 100 mg [Colace 100 MG] 100 mg PO DAILY PRN PRN Reason: Constipation Cephalexin Mh 250 mg [Keflex 250 mg] 250 mg PO DAILY Changed Digoxin 125 mcg PO DAILY #30 tablet Discontinued Metoprolol Succinate 50 mg [Toprol Xl 50 MG] 75 mg PO DAILY Outpatient Orders: CBC Time Frame: 09/01/19, Facility: [facility]. Hosp, Location: LABORATORY CMP Time Frame: 09/01/19, Facility: [facility]. Hosp, Location: LABORATORY NT PRO BNP Time Frame: 09/01/19, Facility: [facility]. Hosp, Location: LABORATORY Additional Instructions: YOUR APPOINTMENT WITH DR. WILSON HAS BEEN MOVED UP TO Sunday09/01/2019@2PM Follow up with: YANET HONG MD [ACTIVE STAFF] - 09/01/19 9:45 am RUTHIE RUIZ [ACTIVE STAFF] - 09/11/19 3:15 pm FRANCESCA ZAVALETA I [NON-STAFF PHY W/O PRIVILEGES] - 09/02/19 10:00 am GIBRAN WILSON DO [NON-STAFF PHY W/O PRIVILEGES] - 09/01/19 2:00 pm Forms: CHF Discharge Instructions, Discharge Instructions
[2019-08-29 12:01] VITALS: BP 134/86; PULSE 75; O2SAT 94
== END 2019-08-29 12:57 | disposition home or self-care (01) | DRG 309 ==
LOC: ICU 14:38 → OBSVTOIN 08-23 16:02
PROVIDERS: ADMIT Family Medicine; ATTEND Family Medicine
DX: I48.91 Unspecified atrial fibrillation (principal); N39.0 Urinary tract infection, site not specified; D64.9 Anemia, unspecified; R06.02 Shortness of breath; I10 Essential (primary) hypertension; J44.9 Chronic obstructive pulmonary disease, unspecified; R31.9 Hematuria, unspecified; I25.10 Atherosclerotic heart disease of native coronary artery without angina pectoris; N28.9 Disorder of kidney and ureter, unspecified; Z79.899 Other long term (current) drug therapy; Z79.01 Long term (current) use of anticoagulants
CPT/HCPCS: 36415; 36430; 71046; 80048; 80053; 80202; 81001; 83880; 84443; 85014; 85018; 85025; 85027; 85379; 86850; 86900; 86901; 86922; 87077; 87086; 87186; 93005; 93306; 93970; 94640; 94762; G0378; P9016; J0692; J0696; J1940; J3370; A9270-GY

== ENCOUNTER 2019-10-29 04:13 | Emergency (ER) | payer MEDICARE ==
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
[2019-10-29] MEDS ORDERED: Hydromorphone 1 mg/ml Ampule IV ONE ×3 (04:51→07:24)
[2019-10-29] MEDS ORDERED: Hydromorphone 1 mg/ml Ampule ONE ×3 (04:56→07:51)
[2019-10-29 05:36] LABS: Hematocrit 33.3 % (35-47); Hemoglobin 9.9 gm/dl (12.0-16.0); Mean Cell Volume 82.6 fl (78-100); Mean Corpuscular Hemoglobin 24.6 pg (26-32); Mean Corpuscular Hgb Concent. 29.7 g/dl (32-36); Mean Platelet Volume 10.1 fl (7.5-11.0); Platelet Count 340 K/mm3 (150-450); Red Blood Count 4.03 M/mm3 (4.1-5.4); Red Cell Distribution Width 22.5 % (11.5-14.0); White Blood Count 11.8 K/mm3 (4.0-10.5)
[2019-10-29 05:39] LABS: ALBUMIN 3.1 g/dL (3.5-5.0); BILIRUBIN,TOTAL 0.7 mg/dL (0.2-1.3); Calcium 8.8 mg/dL (8.4-10.2); Creatinine 1 0.94 mg/dL (0.52-1.04); EST GLOMERULAR FILTRATION RATE 59.9 ML/MIN; Potassium 4.3 mmol/L (3.5-5.1); Total Protein 6.9 g/dL (6.3-8.2)
[2019-10-29 05:43] LABS: Appearance CLEAR (CLEAR); Bilirubin NEGATIVE (NEGATIVE); Blood MODERATE Ery/ul (0-5); Glucose NEGATIVE (NEGATIVE); Ketones NEGATIVE (NEGATIVE); Leukocyte Esterase TRACE (NEGATIVE); Mucus SLIGHT /HPF (NEGATIVE); Nitrite NEGATIVE (NEGATIVE); Protein,Urine Dip 30 (Negative); RBC 51-100 /HPF (0-2); Urobilinogen 2 mg/dL (0-1)
[2019-10-29 07:57] VITALS: BP 156/96; PULSE 69; O2SAT 95
[2019-10-29 08:25] LABS: BAND 2 % (0.0-2.0); Basophil 2 % (0.0-1.0); Eosinophil 2 % (0.00-3.0); Lymphocytes 9 % (24-44); Monocyte 1 % (0.0-12.0); Neutrophils 84 % (36.0-66.0); Total Cells Counted 100
[2019-10-29 08:26] LABS: ANISOCYTOSIS 1+; Platelet Estimate NORMAL (NORMAL)
--- NOTE | 2019-10-29 09:36 | XRAY ---
Indication: Abdomen pain. History of bladder cancer. Multiple contiguous axial images obtained through the abdomen and pelvis using 80 cc Isovue 370 contrast only. Comparison: Noncontrast exam March 30, 2019. Lung bases demonstrates multiple bilateral nodules increased in number and size worrisome for metastasis. No infiltrate or effusion. Heart is now borderline enlarged. Noncontrasted stomach and bowel loops appear nonobstructed. There is mild diffuse scattered colonic fecal debris throughout with stable sigmoid diverticulosis. No free air. New left double-J ureteral stent catheter in situ with distal pigtail portion seen adjacent to 1.4 x 2.7 cm bladder mass. Bladder mass not seen on previous noncontrast exam. Left kidney demonstrates little to no excretion on delayed imaging again with mild hydronephrosis and hydroureter concerning for nonfunctioning stent catheter. Right kidney demonstrates normal enhancement and excretion. There remains a few bilateral renal cysts. Liver demonstrates numerous heterogeneous enhancing lesions predominantly in the right lobe favoring metastasis not seen on previous noncontrast exam. Spleen also demonstrates heterogeneous enhancement on the portal venous phase concerning for metastasis. New small free fluid in the pelvis. No walled off fluid collection or free air. Stable cholecystectomy and hysterectomy. 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 No pathologic retroperitoneal lymphadenopathy. Remaining pancreas, spleen, and adrenal glands are unremarkable. Bony thorax again demonstrates osteopenia, moderate/advanced multilevel thoracolumbar degenerative spondylosis, scoliosis, and L1/L4/L5 kyphoplasty. Impression: 1. 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 Also hepatic and probably splenic metastasis. 2. Known urinary bladder mass with new left double-J ureteral stent catheter. Query nonfunctioning stent catheter. 3. New small pelvic free fluid of uncertain etiology. 4. Again bilateral renal cysts, mild diffuse fecal stasis, sigmoid diverticulosis, arteriosclerotic disease with distal AAA, and chronic bony findings. Comment: Preliminary interpretation was made by C. No critical discrepancy.
== END 2019-10-29 08:50 | disposition home or self-care (01) ==
LOC: ED 04:13
DX: R10.13 Epigastric pain (principal); E88.09 Other disorders of plasma-protein metabolism, not elsewhere classified; R74.8 Abnormal levels of other serum enzymes; N39.0 Urinary tract infection, site not specified; D49.4 Neoplasm of unspecified behavior of bladder; C78.00 Secondary malignant neoplasm of unspecified lung; C79.9 Secondary malignant neoplasm of unspecified site; C78.89 Secondary malignant neoplasm of other digestive organs; R31.9 Hematuria, unspecified; Z79.899 Other long term (current) drug therapy; I10 Essential (primary) hypertension; I25.10 Atherosclerotic heart disease of native coronary artery without angina pectoris; E78.00 Pure hypercholesterolemia, unspecified; J44.9 Chronic obstructive pulmonary disease, unspecified; E03.9 Hypothyroidism, unspecified; M81.0 Age-related osteoporosis without current pathological fracture
CPT/HCPCS: 36000; 36415; 74177; 80053; 81001; 83690; 84484; 85025; 87086; 93005; 96374; 96376; 99284; J1170